=== PATIENT | female | born 1935 | race Caucasian/White ===

== ENCOUNTER 2024-01-20 18:18 | Inpatient (IN) | payer MEDICARE, SELFPAY ==
[2024-01-20] VITALS (47 sets, daily range): BP systolic 116–146; BP diastolic 68–96; PULSE 103–130; RESP 14; TEMP 39.2–39.9; O2SAT 75–96; BMI 29.0; BMI 24.2
--- NOTE | 2024-01-20 18:27 | XR_ITS ---
The [address] [address] Patient Name: KEREN MONTERROSO MRN: [id number] date: 1935 Sex: F Assigned Patient Location: ER Current Patient Location: ED.MAIN Accession/Order Number: [id number] Exam Date: 01/20/2024 18:59 Report Date: 01/20/2024 19:30 At the request of: FABIOLA REYES Procedure: XR chest 1V EXAM: XR chest 1V at 1923 hours HISTORY: Fever, shortness of breath . Cough. COMPARISON: 12/21/2022 TECHNIQUE: AP upright portable chest x-ray FINDINGS: Again seen is elevation of the right hemidiaphragm. Linear atelectasis or scarring appears somewhat improved since the prior study. The right apex in the left lung appear clear. The heart is borderline enlarged without overt cardiac decompensation. Surgical clips project over the axilla. Degenerative changes are seen in the spine. The patient is rotated to the right. XR/XR chest 1V IMPRESSION: There appears to be improvement of the opacity at the right lung base, and the linear changes persisting are probably due to a combination of atelectasis or scarring. Chronic elevation of the right hemidiaphragm is noted. There is no other evidence of an infiltrate or overt cardiac decompensation. Electronically authenticated by: ANALI YORK Date: 01/20/2024 19:30
--- NOTE | 2024-01-20 18:27 | ECG_ITS ---
The [facility] Test Date: 2024-01-20 Pat Name: KEREN MONTERROSO Department: Room: - Gender: Female Pulmonary Fellow: : 1935 Requested By: LENY JOHN Order Number: [id number] Reading MD: DILLON RADFORD Measurements Intervals [place] Rate: 119 P: 54 ME: 162 QRS: -28 QRSD: 86 T: 42 QT: 310 QTc: 380 Interpretive Statements 1120 Sinus tachycardia 7202 Moderate left axis deviation 9140 abnormal rhythm ECG Electronically Signed On 01-23-2024 8:17:44 EDT by DILLON RADFORD
--- NOTE | 2024-01-20 18:34 | ED_ITS ---
HPI HPI - General Adult General Chief complaint: Fever Stated complaint: FALL Time Seen by Provider: 01/20/24 18:20 Mode of arrival: ambulance History of Present Illness HPI narrative: 88-year-old female presented to the emergency department by paramedics to be evaluated. Apparently she was weak last night and fell but there was no obvious injury. She was discovered to have a fever and was seemingly short of breath for the paramedics. Her O2 sat was 85% on room air. She is unable to provide any significant history. No further history is obtainable. Related Data Allergies Allergy/AdvReac Type Severity Reaction Status Date / Time No Known Drug Allergies Allergy Verified 01/20/24 18:34 Opioid HPI Opioid Management Most Recent Opioid Data: No Data to Display Review of Systems ROS Narrative Unobtainable, altered mental status Exam Narrative Exam Narrative: Nurses note and vital signs reviewed and patient is not hypoxic. General: The patient appears weak. She is not in respiratory distress but appears dyspneic.. Skin: Warm, dry, no pallor noted. There is no rash noted. Head: Normocephalic, atraumatic Eye: Normal conjunctiva, no drainage Ears, Nose, Mouth, and Throat: oral mucosa is somewhat dry. Nares patent. Cardiovascular: Regular Rate and Rhythm Respiratory: Breath sounds are equal and she does not take in deep breaths GI: Soft and nontender. Implanted bilingual medical assistant present on the right abdomen. Musculoskeletal: The patient has no evidence of calf tenderness, no pitting edema, symmetrical pulses noted bilaterally Neurological: She is awake and is able to tell me her name. Psychiatric: Cooperative Constitutional Vital Signs, click to edit/add: Last Vital Signs Temp 102.8 F H 01/20/24 18:20 Pulse 120 H 01/20/24 18:20 Resp 26 H 01/20/24 18:20 BP 139/88 01/20/24 18:20 Pulse Ox 86 L 01/20/24 18:20 O2 Del Method Room Air 01/20/24 18:20 Course Vital Signs Vital signs: Vital Signs Temperature 102.8 F H 01/20/24 18:20 Pulse Rate 120 H 01/20/24 18:20 Respiratory Rate 26 H 01/20/24 18:20 Blood Pressure 139/88 01/20/24 18:20 Pulse Oximetry 86 L 01/20/24 18:20 Oxygen Delivery Method Room Air 01/20/24 18:20 Temperature 102.8 F H 01/20/24 18:20 Pulse Rate 120 H 01/20/24 18:20 Respiratory Rate 26 H 01/20/24 18:20 Blood Pressure 139/88 01/20/24 18:20 Pulse Oximetry 86 L 01/20/24 18:20 Oxygen Delivery Method Room Air 01/20/24 18:20 Medical Decision Making MDM Narrative Medical decision making narrative: Tests are ordered and the patient is signed out to Dr. Martines at change of shift. Differential Diagnosis Differential Diagnosis: UTI, COVID, influenza, pneumonia Discharge Plan Discharge Chief Complaint: Fever Clinical Impression: Fever Patient Disposition: Still a Patient Print Language: Khmer Referrals: LENY JOHN [Primary Care Provider] - 1 week
[2024-01-20 18:44] LABS: Basophils Percent Auto 0.4 % (0.2-2.0); Eosinophils Percent Auto 0.4 % (0.9-7.0); Hematocrit 41.3 % (36.0-48.0); Hemoglobin 12.8 g/dL (12.0-16.0); Immature Granulocytes Abs Auto 0.02 10^3/uL (0.00-0.03); Immature Granulocytes Pct Auto 0.2 % (0.0-0.5); Lymphocytes Absolute Auto 1.1 10^3/uL (1.2-3.8); Lymphocytes Percent Auto 11.8 % (20.5-60.0); Mean Corpuscular Hemoglobin 27.2 pg (26.7-34.0); Mean Corpuscular Volume 87.9 fL (81.0-99.0); Mean Platelet Volume 9.8 fL (9.5-13.5); Monocytes Absolute Auto 0.6 10^3/uL (0.3-0.8); Monocytes Percent Auto 5.8 % (1.7-12.0); Neutrophils Absolute Auto 7.8 10^3/uL (1.4-6.5); Neutrophils Percent Auto 81.4 % (43.0-75.0); Platelet Count 228 10^3/uL (150-450); Red Cell Distribution Width 14.9 % (11.0-15.0); White Blood Count 9.6 10^3/uL (4.0-11.0)
[2024-01-20 18:58] LABS: Bilirubin Urine NEGATIVE (NEGATIVE); Blood Urine NEGATIVE (NEGATIVE); Clarity Urine CLEAR (CLEAR); Color Urine YELLOW (YELLOW); Glucose Urine UA >=1000 mg/dL (NEGATIVE); Ketones Urine TRACE mg/dL (NEGATIVE); Leukocyte Esterase Urine NEGATIVE (NEGATIVE); Nitrite Urine NEGATIVE (NEGATIVE); Protein Urine NEGATIVE (NEG/TRACE); Urobilinogen Urine 0.2 EU/dL (0.2-1.0); pH Urine 7.5 (5.0-9.0)
[2024-01-20] MEDS: ACETAMINOPHEN 650 MG RECTAL SUPPOSITORY PR (18:58)
[2024-01-20] MEDS: 0.9 % SODIUM CHLORIDE 500 ML IV ×2 (18:58→20:49)
[2024-01-20 18:59] LABS: Adenovirus NOT DETECTED (NOT DETECTE); Bordetella parapertussis NOT DETECTED (NOT DETECTE); Coronavirus 229E NOT DETECTED (NOT DETECTE); Coronavirus HKU1 NOT DETECTED (NOT DETECTE); Coronavirus NL63 NOT DETECTED (NOT DETECTE); Coronavirus OC43 NOT DETECTED (NOT DETECTE); Human Metapneumovirus NOT DETECTED (NOT DETECTE); Influenza A NOT DETECTED (NOT DETECTE); Influenza B NOT DETECTED (NOT DETECTE); Mycoplasma pneumoniae NOT DETECTED (NOT DETECTE); Parainfluenza Virus 1 NOT DETECTED (NOT DETECTE); Parainfluenza Virus 2 NOT DETECTED (NOT DETECTE); Parainfluenza Virus 3 NOT DETECTED (NOT DETECTE); Parainfluenza Virus 4 NOT DETECTED (NOT DETECTE); Respiratory Syncytial Virus NOT DETECTED (NOT DETECTE); SARS-CoV-2 NOT DETECTED (NOT DETECTE)
[2024-01-20 19:00] LABS: INR 1.02; Partial Thromboplastin Time 24.2 sec (22.3-36.2); Prothrombin Time 10.8 sec (9.0-11.6)
[2024-01-20 19:02] LABS: Urine Microscopic Indicated NO
[2024-01-20 19:14] LABS: Alanine Aminotransferase 30 U/L (14-59); Albumin Level 3.7 g/dL (3.4-5.0); Alkaline Phosphatase 66 U/L (46-116); Anion Gap 16.4; Aspartate Amino Transferase 22 U/L (15-37); BUN Creatinine Ratio 15.6; Bilirubin Total 0.4 mg/dL (0.2-1.0); Calcium 9.3 mg/dL (8.5-10.1); Carbon Dioxide 29.5 mmol/L (21.0-32.0); Chloride 99 mmol/L (98-107); Estimated GFR (African America 48 (>=60); Estimated GFR (Non-African Ame 40 (>=60); Globulin 3.6 g/dL; Glucose 218 mg/dL (74-106); Potassium 4.9 mmol/L (3.5-5.1); Sodium 140 mmol/L (136-145); Total Protein 7.3 g/dL (6.4-8.2); Troponin I High Sensitivity 5.4 pg/mL (4.0-51.3)
[2024-01-20 19:16] LABS: PROCALCITONIN <0.05 ng/mL (0.00-0.50)
[2024-01-20 19:17] LABS: Lactate/Lactic Acid 2.3 mmol/L (0.4-2.0)
[2024-01-20] MEDS: ALBUTEROL SULFATE 2.5 MG/3 ML VIAL NEB IH (19:25)
[2024-01-20 19:50] LABS: Human Rhinovirus/Enterovirus DETECTED (NOT DETECTE)
[2024-01-20] MEDS: METHYLPREDNISOLONE SOD SUCC PF 125 MG/2 ML VIAL IVP (19:58)
[2024-01-20] MEDS: PIPERACILLIN SODIUM/TAZOBACTAM 3.375 GM in 0.9 % SODIUM CHLORIDE 50 ML IV (19:58)
[2024-01-20] MEDS: KETOROLAC TROMETHAMINE 30 MG/ML VIAL 15 MG IVP (20:48)
--- NOTE | 2024-01-20 21:55 | PC.NURSE ---
Patient transferred to ICU via cart on Non-rebreather mask with Respitory Therapist in for BIPAP setup once patient transferred for reapplication.
[2024-01-20] MEDS: 0.9 % SODIUM CHLORIDE 1,000 ML 126 ML IV (22:30)
[2024-01-20 22:43] LABS: Lactate/Lactic Acid 1.5 mmol/L (0.4-2.0)
[2024-01-21] VITALS (97 sets, daily range): BP systolic 78–135; BP diastolic 49–113; PULSE 64–153; TEMP 36.6–37.1; O2SAT 75–95; BMI 24.2
[2024-01-21] MEDS: PIPERACILLIN SODIUM/TAZOBACTAM 3.375 GM in 0.9 % SODIUM CHLORIDE 50 ML IV ×3 (02:38→21:09)
[2024-01-21 04:19] LABS: Basophils Percent Auto 0.3 % (0.2-2.0); Eosinophils Percent Auto 0.1 % (0.9-7.0); Hematocrit 37.3 % (36.0-48.0); Hemoglobin 11.5 g/dL (12.0-16.0); Immature Granulocytes Abs Auto 0.04 10^3/uL (0.00-0.03); Immature Granulocytes Pct Auto 0.5 % (0.0-0.5); Lymphocytes Percent Auto 11.1 % (20.5-60.0); Mean Corpuscular HGB Conc 30.8 g/dL (29.9-35.2); Mean Corpuscular Hemoglobin 27.5 pg (26.7-34.0); Mean Corpuscular Volume 89.2 fL (81.0-99.0); Monocytes Absolute Auto 0.6 10^3/uL (0.3-0.8); Monocytes Percent Auto 7.2 % (1.7-12.0); Neutrophils Absolute Auto 6.9 10^3/uL (1.4-6.5); Neutrophils Percent Auto 80.8 % (43.0-75.0); Platelet Count 179 10^3/uL (150-450); Red Blood Count 4.18 10^6/uL (4.20-5.40); Red Cell Distribution Width 14.8 % (11.0-15.0); White Blood Count 8.6 10^3/uL (4.0-11.0)
[2024-01-21 04:20] LABS: PCO2 VBG 43.3 mmHg (40.0-52.0); pH VBG 7.355 (7.330-7.430)
[2024-01-21 04:48] LABS: Alanine Aminotransferase 22 U/L (14-59); Albumin Globulin Ratio 0.9; Albumin Level 2.9 g/dL (3.4-5.0); Alkaline Phosphatase 48 U/L (46-116); Anion Gap 16.2; Aspartate Amino Transferase 14 U/L (15-37); BUN Creatinine Ratio 15.4; Bilirubin Total 0.4 mg/dL (0.2-1.0); Calcium 8.3 mg/dL (8.5-10.1); Carbon Dioxide 25.4 mmol/L (21.0-32.0); Chloride 105 mmol/L (98-107); Estimated GFR (African America 45 (>=60); Estimated GFR (Non-African Ame 37 (>=60); Globulin 3.2 g/dL; Glucose 244 mg/dL (74-106); Potassium 4.6 mmol/L (3.5-5.1); Sodium 142 mmol/L (136-145); Total Protein 6.1 g/dL (6.4-8.2)
[2024-01-21] MEDS: IPRATROPIUM/ALBUTEROL SULFATE 3 ML AMPUL.NEB IH ×2 (05:08→11:18)
[2024-01-21] MEDS: LEVOTHYROXINE SODIUM 100 MCG TABLET PO (05:49)
[2024-01-21] MEDS: GABAPENTIN 300 MG CAPSULE PO ×3 (05:49→21:04)
[2024-01-21] MEDS: TRAMADOL HCL 50 MG TABLET 100 MG PO ×2 (05:49→17:06)
[2024-01-21] MEDS: ACETAMINOPHEN 325 MG TABLET 650 MG PO (05:54)
[2024-01-21] MEDS: 0.9 % SODIUM CHLORIDE 1,000 ML 126 ML IV ×2 (06:42→17:08)
[2024-01-21 06:47] LABS: Thyroid Stimulating Hormone 0.423 uIU/mL (0.358-3.740)
[2024-01-21] MEDS: LEVOFLOXACIN IN DEXTROSE 5 % 750 MG/150 ML IV.SOLN 100 MG IV (06:52)
[2024-01-21] MEDS: METHYLPREDNISOLONE SOD SUCC PF 125 MG/2 ML VIAL 60 MG IVP ×3 (06:53→18:21)
[2024-01-21 07:43] LABS: Glucometer 280 mg/dL (74-106)
[2024-01-21 08:28] LABS: Magnesium 1.5 mg/dL (1.8-2.4)
[2024-01-21] MEDS: ENOXAPARIN SODIUM 30 MG/0.3 ML SYRINGE SUBQ (08:32)
[2024-01-21] MEDS: FLUTICASONE PROPIONATE 50 MCG NASAL SPRAY 2 SPRAY NS (08:32)
[2024-01-21] MEDS: INSULIN ASPART 300 UNIT/3 ML PEN SUBQ ×4 (08:33→21:00)
[2024-01-21] MEDS: METOPROLOL SUCCINATE 50 MG TAB.ER.24H PO (08:34)
[2024-01-21] MEDS: GUAIFENESIN 600 MG TAB.ER.12H PO ×2 (08:34→20:56)
[2024-01-21] MEDS: OXYBUTYNIN CHLORIDE 5 MG TAB XL 10 MG PO (08:34)
[2024-01-21] MEDS: SENNOSIDES 8.6 MG TABLET 8.59999999999999964 MG PO (08:34)
[2024-01-21] MEDS: OMEPRAZOLE 40 MG CAPSULE.DR PO (08:35)
[2024-01-21] MEDS: FENTANYL 12 MCG/HR PATCH.TD72 TD (08:39)
[2024-01-21] MEDS: ENSURE HP 237 ML LIQUID PO ×2 (08:39→21:03)
--- NOTE | 2024-01-21 08:54 | P.HP_ITS ---
HPI H&P: HPI History of Present Illness Chief complaint: FALL Sever sepsis pneumonia resp failure Narrative: Patient please to the emergency room after a fall, found to have right lower lobe pneumonia with fever, sinus tachycardia, respiratory distress, O2 saturation 86% on 3 L Initial set patient up in the intensive care unit, she had Vapotherm in place, still with some moderate conversational dyspnea. Patient had symptoms for couple days, it is progressed prior to coming into the emergency room. 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 - Disorders of diaphragm (ICD-10) Deafness in left ear ?H91.92 - Unspecified hearing loss, left ear (ICD-10) Occasional tremors ?R25.1 - Tremor, unspecified (ICD-10) CKD (chronic kidney disease), stage III ?N18.30 - Chronic kidney disease, stage 3 unspecified (ICD-10) Breast cancer ?C50.919 - Malignant neoplasm of unspecified site of unspecified female breast (ICD-10) Surgical History (Updated 01/21/24 @ 11:45 by Bernadine Harrison RN) H/O: hysterectomy ?Z90.710 - Acquired absence of both cervix and uterus (ICD-10) Previous back surgery ?Z98.890 - Other specified postprocedural states (ICD-10) H/O lumpectomy ?Z98.890 - Other specified postprocedural states (ICD-10) Social History (Updated 01/21/24 @ 08:20 by Bernadine Harrison, RN) Within the past year, how often did you have a drink containing alcohol: never Score interpretation: A score less than 3 is consistent with normal alcohol consumption. Smoking status: Never smoker Second hand tobacco smoke exposure: No Non-prescribed substance use: denies use Meds Home Medications and Allergies Home Medications ?Medication ?Instructions ?Recorded ?Confirmed ?Type albuterol sulfate 2.5 mg/3 mL 2.5 mg continuous nebulization Q4H 01/20/24 01/20/24 History (0.083 %) solution for nebulization PRN shortness of breath or wheezing albuterol sulfate 90 mcg/actuation 2 puff inhalation Q4H PRN 01/20/24 01/20/24 History aerosol inhaler shortness of breath or wheezing bupropion HCl 100 mg tablet 100 mg PO BID 01/20/24 01/20/24 History celecoxib 200 mg capsule 200 mg PO BID 01/20/24 01/20/24 History dapagliflozin propanediol 10 mg 10 mg PO QAM 01/20/24 01/20/24 History tablet (Farxiga) esomeprazole magnesium 40 mg 40 mg PO DAILY 01/20/24 01/20/24 History capsule,delayed release fentanyl 12 mcg/hr transdermal 1 patch transdermal Q72H 01/20/24 01/20/24 History patch finerenone 10 mg tablet (Kerendia) 10 mg PO DAILY 01/20/24 01/20/24 History fluticasone fur. 100 mcg-umeclid 1 inh inhalation Q24H 01/20/24 01/20/24 History 62.5 mcg-vilant 25 mcg inhalat.powder (Trelegy Ellipta) fluticasone propionate 50 2 spray intranasal QAM 01/20/24 01/20/24 History mcg/actuation nasal spray,suspension gabapentin 300 mg capsule 300 mg PO TID 01/20/24 01/20/24 History insulin glargine-yfgn 100 unit/mL 20 unit subcut BID 01/20/24 01/20/24 History (3 mL) subcutaneous pen (Semglee (insulin glargine-yfgn) Pen) levothyroxine 112 mcg tablet 100 mcg PO QAM 01/20/24 01/20/24 History lidocaine 5 % topical patch 1 patch transdermal Q24H 01/20/24 01/20/24 History metformin 500 mg tablet,extended 500 mg PO BID 01/20/24 01/20/24 History release 24 hr metoprolol succinate 50 mg 50 mg PO QAM 01/20/24 01/20/24 History tablet,extended release 24 hr mirabegron 50 mg tablet,extended 50 mg PO DAILY 01/20/24 01/20/24 History release 24 hr (Myrbetriq) naloxone 4 mg/actuation nasal spray 1 spray intranasal Q3M PRN opioid 01/20/24 01/20/24 History overdose promethazine 25 mg tablet 25 mg PO Q6H PRN nausea and 01/20/24 01/20/24 History vomiting rosuvastatin 20 mg tablet 20 mg PO QAM 01/20/24 01/20/24 History semaglutide 0.25 mg or 0.5 mg (2 0.5 mg subcut QWEEK 01/20/24 01/20/24 History mg/3 mL) subcutaneous pen injector (Ozempic) sennosides 8.6 mg tablet (senna) 8.6 mg PO DAILY 01/20/24 01/20/24 History tramadol 50 mg tablet 100 mg PO Q8H PRN pain 01/20/24 01/20/24 History Allergies Allergy/AdvReac Type Severity Reaction Status Date / Time No Known Drug Allergies Allergy Verified 01/20/24 18:34 Exam Constitutional Vital Signs, click to edit/add: Last Vital Signs Temp 102.5 F H 01/20/24 21:43 Pulse 102 H 01/21/24 07:00 Resp 16 01/21/24 07:00 BP 115/61 01/21/24 07:00 Pulse Ox 91 L 01/21/24 07:00 O2 Del Method Vapotherm 01/21/24 05:26 O2 Flow Rate 40 01/21/24 07:00 FiO2 55 01/21/24 07:00 Documenting provider has reviewed patient's vital signs: yes Common normals: apparent distress (Moderate respiratory distress) Chest Common normals: inspection of chest normal Respiratory Common normals: abnormal respiratory effort (My respiratory distress) and not clear to ascultation bilaterally Effort & inspection: tachypneic and respiratory distress Auscultation: rhonchi and wheezes Cardio Common normals: regular rate and regular rhythm GI Common normals: Normal to inspection, nondistended, normoactive bowel sounds present Extremity Common normals: normal to inspection, full ROM and no clubbing, cyanosis or edema Results Labs Labs: Short CBC 01/20/24 01/21/24 Range/Units 18:31 03:52 WBC 9.6 8.6 (4.0-11.0) 10^3/uL Hgb 12.8 11.5 L (12.0-16.0) g/dL Hct 41.3 37.3 (36.0-48.0) % Plt Count 228 179 (150-450) 10^3/uL BMP 01/20/24 01/21/24 18:31 03:52 Sodium 140 142 Potassium 4.9 4.6 Chloride 99 105 Carbon Dioxide 29.5 25.4 BUN 20.0 H 21.0 H Creatinine 1.28 H 1.36 H Glucose 218 H 244 H Calcium 9.3 8.3 L Liver Function 01/20/24 01/21/24 Range/Units 18:31 03:52 Total Bilirubin 0.4 0.4 (0.2-1.0) mg/dL AST 22 14 L (15-37) U/L ALT 30 22 (14-59) U/L Alkaline Phosphatase 66 48 (46-116) U/L Albumin 3.7 2.9 L (3.4-5.0) g/dL Urine 01/20/24 Range/Units 18:38 Urine Color Yellow (YELLOW) Urine Clarity Clear (CLEAR) Urine pH 7.5 (5.0-9.0) Ur Specific [place] 1.020 (1.005-1.025) Urine Protein Negative (NEG/TRACE) mg/dL Urine Glucose (UA) >=1000 A (NEGATIVE) mg/dL ABG ABG results: 01/21/24 03:52 VBG pH 7.355 VBG pCO2 43.3 Assessment and Plan Assessment and Plan (1) RLL pneumonia: Plan You are, 103.9, sinus tachycardia, respiratory distress, acute hypoxia with O2 saturation of 86% on 3 L, with acute hypoxic respiratory failure-on BiPAP yesterday, left shift in relation to white blood cell count consistent with bacterial process, acute kidney injury with a history of chronic kidney disease stage III, lactic acidosis secondary to right lower lobe pneumonia complicated by acute rhinovirus infection resulting in acute exacerbation of COPD and resul ting in severe sepsis. Try to obtain sputum culture, blood cultures pending, IV antibiotics, aerosols, currently on Vapotherm, see if we can wean that today, low-dose steroids secondary to poorly controlled diabetes mellitus. Did not give full fluid resuscitation secondary to her chronic kidney disease and likelihood of fluid overload Moderate protein calorie malnutrition-diet supplement Chronic kidney disease stage IV-monitor daily creatinine elevated from baseline 20% Insulin-dependent diabetes mellitus-insulin sliding scale Chronic low back pain-continue with home medications Admission criteria: Severe sepsis with borderline respiratory failure, required BiPAP last night, Vapotherm this morning, secondary to right lower lobe pneumonia. Medically necessary treatment will span 2 midnights., Urinary Catheter Management Urinary Catheter Management Urethral: Cath placed during this visit: yes Urethral indwelling: No Insertion date: 01/20/24 Insertion time: 18:49
[2024-01-21] MEDS: BUPROPION HCL 100 MG SR TABLET 12H PO ×2 (09:07→20:56)
[2024-01-21] MEDS: HYDROCORTISONE HC 2.5% RECTAL CREAM 30 APPLIC TUBE TOPICAL ×2 (09:08→21:03)
[2024-01-21] MEDS: CELECOXIB 200 MG CAPSULE PO ×2 (09:08→20:56)
--- NOTE | 2024-01-21 09:18 | CM.NOTE ---
Rounds made with Dr. Motley, pt continuees on vapotherm today. PT and OT will evaluate pt today for discharge planning. Dr. Motley did discuss skilled if needed, pt refuses at this time. Pt would like to see how she does with PT today.
[2024-01-21] MEDS: BUDESONIDE 0.5 MG/2 ML AMPULE NEB IH ×2 (11:17→22:13)
--- NOTE | 2024-01-21 11:40 | SWNOTE1 ---
SW met with pt to discuss dc needs. Pt's son was in room as well. SW discussed various discharge options. SW let pt and son know that at this time it would be beneficial to go [facility] re[facility] stay. SW let them both know it is possible she will get stronger and better and not need skilled. Then we can discuss home health or outpt. Pt lives in [place], he voiced he would like somewhere here. SW provided list from medicare.gov with star ratings. Pt's son voiced he lives right by [facility]. He would like them. SW explained to pt and son how a precert works and that if she does get better she would not have to go if she does not want to. They voiced understanding. Referral sent to [facility]. Referral included face sheet, ED note, H&P, provider notes, case management report,nursing notes, diagnostic imaging, med list, and PT/OT notes. Important Message from Medicare reviewed and discussed with patient and patient's son. They verbalized understanding and signed the form. Original given to patient's son and copy placed in patient?s chart.
[2024-01-21 12:31] LABS: Glucometer 196 mg/dL (74-106)
--- NOTE | 2024-01-21 13:14 | SWNOTE1 ---
ITA received call from Jessica at [facility], there concern is starting precert as she is still on vapotherm and they only go up to 5 liters. There other concern is they do not have a private room until Thursday and she is on droplet precautions. Jessica voiced they can start precert and see what insurance says and go from there. ITA advised her to start precert. Jessica at [facility] is starting precert.
--- NOTE | 2024-01-21 14:18 | ECG_ITS ---
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
--- NOTE | 2024-01-21 14:25 | PC.NURSE ---
Patient was noted to be tachycardic on the monitors. Upon assessment of patient, patient reveals that she is only feeling shaky at this time. Does not report any additional symptoms. EKG was performed and faxed over to physician 's office. Office staff was called and notified of EKG being sent at this time. Communicated with Dr. Motley via [place] Text. Awaiting orders from physician.
[2024-01-21] MEDS: METOPROLOL TARTRATE 5 MG/5 ML VIAL IVP ×3 (14:37→14:52)
--- NOTE | 2024-01-21 14:56 | ECG_ITS ---
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 Repeat ECG is requested 9134 abnormal ECG Compared to ECG 01/21/2024 14:14:36 ST (T wave) deviation no longer present Myocardial infarct finding still present Electronically Signed On 01-23-2024 8:20:23 EDT by DILLON RADFORD
[2024-01-21] MEDS: DILTIAZEM HCL 25 MG/5 ML VIAL 20 MG IV (15:09)
[2024-01-21] MEDS: 0.9 % SODIUM CHLORIDE 500 ML IV ×2 (15:10→16:13)
--- NOTE | 2024-01-21 15:15 | ECG_ITS ---
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
[2024-01-21] MEDS: dilTIAZem HCL 125 MG in 0.9 % SODIUM CHLORIDE 100 ML 10 MG IV (15:48)
--- NOTE | 2024-01-21 16:06 | CA_ITS ---
Patient Name: KEREN MONTERROSO MR#: [id number] : 1935 Exam Date: 01/22/2024 Ordering Doctor: DR Yuval Motley . ECHOCARDIOGRAM REPORT PROCEDURE: CA ECHO DOPPLER COMPLETE INDICATIONS: Congestive heart fialure, hypertension, diabetes, chronic kidney disease COMPARISON: None. DESCRIPTION: COMPLETE ECHOCARDIOGRAM Real-time transthoracic echocardiography with 2D, M-mode, spectral and color flow Doppler performed. QUALITY: Technical quality was good. 65 , 145#, BSA 1.73 m2, BP 124/56 LEFT VENTRICLE: Normal chamber size. Thickened septal wall. Normal systolic function. LV EF: Normal left ventricular ejection fraction, (>55%). DIASTOLIC: Normal diastolic function. ATRIAL SEPTUM: LEFT ATRIUM: Normal chamber size. RIGHT ATRIUM: Normal chamber size. RIGHT VENTRICLE: Mildly dilated. Normal right ventricular systolic function. TRICUSPID VALVE: Normal mobility and thickness. No stenosis with no regurgitation. Unable to assess right-sided pressures due to lack of measurable tricuspid regurgitation. MITRAL VALVE: Normal mobility and thickness. No evidence of mitral valve stenosis. There is no mitral annular calcification. Trivial mitral regurgitation. AORTIC VALVE: Normal trileaflet appearance. Mildly calcified aortic valve. Normal leaflet mobility. No evidence of aortic valve stenosis. Trivial aortic regurgitation. AORTIC ROOT: Normal diameter and appearance. PULMONIC VALVE: Normal thickness and mobility. No stenosis. Trivial regurgitation. PERICARDIUM: No evidence of pericardial effusion. IVC: Collapses with inspirations. IVC is normal in size. PLEURA: CONCLUSION: 1. Normal left ventricular size and systolic function. LVEF is estimated at 60 to 65%. 2. Mildly dilated right ventricle with normal systolic function. 3. No significant valvular dysfunction. 4. Unable to assess right-sided pressures due to lack of measurable tricuspid regurgitation. Adult Echocardiography Procedure Report Left Ventricle LVEDD (3.7 - 5.6 cm): 4.44 cm LVESD (2.2 - 4.0 cm): 3.29 cm LVIVS thickness (0.6 - 1.2 cm): 1.07 cm LVPW thickness (0.5 - 1.0 cm): 0.70 cm e': 0.09 m/s E - e': 8.05 LVOT Max Gradient: 4.40 mm[Hg] LVOT Area (cm2): 1.05 m/s Peak Velocity (LVOT): 1.05 m/s Mean Velocity (LVOT): 0.70 m/s LVOT Diameter 2.09 cm Left Atrium LA Volume Index (2D A2C): 26.46 ml/m2 Left Atrium Systolic Dimension: 3.87 cm Mitral Valve MV E to A Ratio: 0.92 Mitral Valve A-Wave Peak Velocity: 0.81 m/s Mitral Valve E-Wave Peak Velocity: 0.74 m/s Right Ventricle Aorta AO Root Diam: 2.97 cm Ascending Ao Diam: 2.94 cm Aortic Valve AoV Area (Peak Jeff): 2.05 cm2, 2.05 cm2 AoV Area (VTI): 2.28 cm2, 2.28 cm2 Peak Velocity(Antegrade Flow): 1.75 m/s Peak Gradient(Antegrade Flow): 12.29 mm[Hg] Mean Velocity(Antegrade Flow): 1.20 m/s Mean Gradient(Antegrade Flow): 6.65 mm[Hg] Velocity Time Integral: 36.86 cm Tricuspid Valve Pulmonic Valve Peak Velocity: 0.90 m/s Peak Gradient: 3.20 mm[Hg], 3.26 mm[Hg] Right Atrium Right Atrium Systolic Pressure: 28.91 ml, 28.91 ml Dictated by: Jozef Subramanian M.D. on 01/22/2024 at 16:23 Approved by: Jozef Subramanian M.D. on 01/22/2024 at 16:27
[2024-01-21] MEDS: IPRATROPIUM BROMIDE 0.5 MG/2.5 ML VIAL.NEB IH ×2 (16:53→22:12)
[2024-01-21] MEDS: LEVALBUTEROL HCL 0.63 MG/3 ML VIAL.NEB 0.630000000000000004 MG IH ×2 (16:53→22:13)
[2024-01-21] MEDS: BENZONATATE 100 MG CAPSULE 200 MG PO (17:06)
[2024-01-21] MEDS: ACETAMINOPHEN 500 MG TABLET 1000 MG PO (17:06)
[2024-01-21 17:11] LABS: Glucometer 233 mg/dL (74-106)
--- NOTE | 2024-01-21 18:13 | PC.NURSE ---
Urinary catheter was removed at 1000. Patient is due to void but is unable to at this time. Patient reports feeling like she is having stress incontinence when she coughs. During perineal care and application of external female catheter there was no noted urine on lift pad. It was also noted during perineal care that patient had significant redness and thick white discharge in vaginal area. Bladder scan was performed and patient was noted to have 324 ml of urine in bladder at this time. Physician was notified. Will continue to monitor patient.
[2024-01-21] MEDS: FLUCONAZOLE 100 MG TABLET PO (18:39)
[2024-01-21] MEDS: NYSTATIN 15 GM POWDER 1 APPLIC TOPICAL ×2 (18:39→21:04)
[2024-01-21 19:06] LABS: Troponin I High Sensitivity 16.9 pg/mL (4.0-51.3)
--- NOTE | 2024-01-21 19:47 | ECG_ITS ---
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
[2024-01-21 20:23] LABS: Troponin I High Sensitivity 17.5 pg/mL (4.0-51.3)
[2024-01-21 20:46] LABS: Glucometer 242 mg/dL (74-106)
[2024-01-21] MEDS: DIGOXIN 500 MCG/2 ML AMPUL 250 MCG IV (20:55)
[2024-01-21] MEDS: INSULIN DETEMIR 300 UNIT/3 ML INSULN.PEN 16 UNIT SQ (20:58)
[2024-01-22] VITALS (83 sets, daily range): BP systolic 99–167; BP diastolic 53–102; PULSE 56–131; TEMP 36.3–36.8; O2SAT 81–96
[2024-01-22] MEDS: METHYLPREDNISOLONE SOD SUCC PF 125 MG/2 ML VIAL 60 MG IVP ×2 (00:33→05:53)
[2024-01-22] MEDS: 0.9 % SODIUM CHLORIDE 1,000 ML 126 ML IV (00:33)
[2024-01-22] MEDS: TRAMADOL HCL 50 MG TABLET 100 MG PO ×3 (00:34→21:49)
[2024-01-22] MEDS: ACETAMINOPHEN 500 MG TABLET 1000 MG PO ×3 (00:39→21:51)
[2024-01-22 00:59] LABS: Troponin I High Sensitivity 21.4 pg/mL (4.0-51.3)
[2024-01-22] MEDS: DIGOXIN 500 MCG/2 ML AMPUL 250 MCG IV (02:28)
[2024-01-22 04:59] LABS: Basophils Percent Auto 0.1 % (0.2-2.0); Hematocrit 32.4 % (36.0-48.0); Hemoglobin 10.1 g/dL (12.0-16.0); Immature Granulocytes Abs Auto 0.05 10^3/uL (0.00-0.03); Immature Granulocytes Pct Auto 0.6 % (0.0-0.5); Lymphocytes Absolute Auto 0.8 10^3/uL (1.2-3.8); Mean Corpuscular HGB Conc 31.2 g/dL (29.9-35.2); Mean Corpuscular Hemoglobin 27.6 pg (26.7-34.0); Mean Corpuscular Volume 88.5 fL (81.0-99.0); Mean Platelet Volume 10.4 fL (9.5-13.5); Monocytes Absolute Auto 0.6 10^3/uL (0.3-0.8); Monocytes Percent Auto 7.3 % (1.7-12.0); Neutrophils Absolute Auto 7.2 10^3/uL (1.4-6.5); Platelet Count 173 10^3/uL (150-450); Red Blood Count 3.66 10^6/uL (4.20-5.40); Red Cell Distribution Width 14.8 % (11.0-15.0); White Blood Count 8.7 10^3/uL (4.0-11.0)
[2024-01-22 05:17] LABS: Alanine Aminotransferase 22 U/L (14-59); Albumin Globulin Ratio 0.7; Albumin Level 2.4 g/dL (3.4-5.0); Alkaline Phosphatase 42 U/L (46-116); Anion Gap 13.2; Aspartate Amino Transferase 23 U/L (15-37); BUN Creatinine Ratio 24.6; Bilirubin Total 0.4 mg/dL (0.2-1.0); Calcium 8.3 mg/dL (8.5-10.1); Carbon Dioxide 25.9 mmol/L (21.0-32.0); Chloride 109 mmol/L (98-107); Estimated GFR (African America 51 (>=60); Estimated GFR (Non-African Ame 42 (>=60); Globulin 3.3 g/dL; Glucose 153 mg/dL (74-106); Potassium 4.1 mmol/L (3.5-5.1); Sodium 144 mmol/L (136-145); Total Protein 5.7 g/dL (6.4-8.2)
[2024-01-22 05:21] LABS: Troponin I High Sensitivity 20.6 pg/mL (4.0-51.3)
[2024-01-22] MEDS: IPRATROPIUM BROMIDE 0.5 MG/2.5 ML VIAL.NEB IH ×4 (05:27→22:34)
[2024-01-22] MEDS: LEVALBUTEROL HCL 0.63 MG/3 ML VIAL.NEB 0.630000000000000004 MG IH ×4 (05:27→22:34)
[2024-01-22] MEDS: PIPERACILLIN SODIUM/TAZOBACTAM 3.375 GM in 0.9 % SODIUM CHLORIDE 50 ML IV ×3 (05:52→21:56)
[2024-01-22] MEDS: GABAPENTIN 300 MG CAPSULE PO ×3 (05:53→21:50)
[2024-01-22] MEDS: LEVOTHYROXINE SODIUM 100 MCG TABLET PO (05:54)
[2024-01-22] MEDS: NYSTATIN 15 GM POWDER 1 APPLIC TOPICAL ×3 (05:56→21:52)
[2024-01-22 06:34] LABS: Digoxin 2.3 ng/mL (0.9-2.0)
[2024-01-22 07:47] LABS: Glucometer 157 mg/dL (74-106)
[2024-01-22] MEDS: INSULIN ASPART 300 UNIT/3 ML PEN SUBQ ×4 (08:30→21:53)
[2024-01-22] MEDS: GUAIFENESIN 600 MG TAB.ER.12H PO ×2 (08:31→21:50)
[2024-01-22] MEDS: BUPROPION HCL 100 MG SR TABLET 12H PO ×2 (08:31→21:50)
[2024-01-22] MEDS: FLUTICASONE PROPIONATE 50 MCG NASAL SPRAY 2 SPRAY NS (08:31)
[2024-01-22] MEDS: SENNOSIDES 8.6 MG TABLET 8.59999999999999964 MG PO (08:31)
[2024-01-22] MEDS: OXYBUTYNIN CHLORIDE 5 MG TAB XL 10 MG PO (08:31)
[2024-01-22] MEDS: OMEPRAZOLE 40 MG CAPSULE.DR PO (08:31)
[2024-01-22] MEDS: FLUCONAZOLE 100 MG TABLET PO (08:31)
[2024-01-22] MEDS: CELECOXIB 200 MG CAPSULE PO ×2 (08:31→21:50)
[2024-01-22] MEDS: ENSURE HP 237 ML LIQUID PO ×2 (08:31→21:55)
[2024-01-22] MEDS: ENOXAPARIN SODIUM 30 MG/0.3 ML SYRINGE SUBQ (08:32)
[2024-01-22] MEDS: HYDROCORTISONE HC 2.5% RECTAL CREAM 30 APPLIC TUBE TOPICAL ×2 (08:33→21:54)
--- NOTE | 2024-01-22 08:34 | P.PN_ITS ---
Progress Note: Subjective Subjective Interval history: This am on rounds - pt felt better -= able to be weaned off vapotherm this afternoon -pt with tachycardia and placed back on vapotherm - and cardizem drip Exam Constitutional Vital Signs, click to edit/add: Last Vital Signs Temp 98.1 F 01/22/24 04:00 Pulse 66 01/22/24 08:00 Resp 20 01/22/24 08:00 BP 146/74 H 01/22/24 04:30 Pulse Ox 91 L 01/22/24 08:00 O2 Del Method Nasal Cannula 01/22/24 06:00 O2 Flow Rate 5 01/22/24 06:00 FiO2 50 01/22/24 05:27 Documenting provider has reviewed patient's vital signs: yes Common normals: apparent distress (Moderate respiratory distress) Chest Common normals: inspection of chest normal Respiratory Common normals: abnormal respiratory effort (My respiratory distress) and not clear to ascultation bilaterally Effort & inspection: tachypneic and respiratory distress Auscultation: rhonchi and wheezes Cardio Common normals: regular rate and regular rhythm GI Common normals: Normal to inspection, nondistended, normoactive bowel sounds present Extremity Common normals: normal to inspection, full ROM and no clubbing, cyanosis or edema Progress Note: Objective Labs Labs: Short CBC 01/22/24 Range/Units 04:28 WBC 8.7 (4.0-11.0) 10^3/uL Hgb 10.1 L (12.0-16.0) g/dL Hct 32.4 L (36.0-48.0) % Plt Count 173 (150-450) 10^3/uL BMP 01/22/24 04:28 Sodium 144 Potassium 4.1 Chloride 109 H Carbon Dioxide 25.9 BUN 30.0 H Creatinine 1.22 H Glucose 153 H Calcium 8.3 L Liver Function 01/22/24 Range/Units 04:28 Total Bilirubin 0.4 (0.2-1.0) mg/dL AST 23 (15-37) U/L ALT 22 (14-59) U/L Alkaline Phosphatase 42 L (46-116) U/L Albumin 2.4 L (3.4-5.0) g/dL Progress Note: A&P Assessment and Plan (1) RLL pneumonia: Assessment and Plan: Admission Dx: Fever, 103.9, sinus tachycardia, respiratory distress, acute hypoxia with O2 saturation of 86% on 3 L, with acute hypoxic respiratory failure-on BiPAP yesterday, left shift in relation to white blood cell count consistent with bacterial process, acute kidney injury with a history of chronic kidney disease stage III, lactic acidosis secondary to right lower lobe pneumonia complicated by acute rhinovirus infection resulting in acute exacerbation of COPD and resulting in severe sepsis. Try to obtain sputum culture, blood cultures pending, IV antibiotics, aerosols, start to taper steroids Currently had to restart the Vapotherm, consult pulmonology and cardiology pending for today. Continue with current antibiotic regiment white blood cell count remains normal Borderline dig toxicity-heart rate is much improved this morning, she did go back into the rapid rate this afternoon, will start patient on oral Cardizem, she does have a dose of oral Lanoxin in a.m. just need to verify level in a.m. 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 Medically necessary treatment will span 2 midnights., Urinary Catheter Management Urinary Catheter Management Urethral: Cath placed during this visit: yes Urethral indwelling: No Insertion date: 01/20/24 Insertion time: 18:49
--- NOTE | 2024-01-22 08:40 | CM.NOTE ---
Rounds made with Dr. Motley. No plan for discharge today.
[2024-01-22] MEDS: METOPROLOL SUCCINATE 50 MG TAB.ER.24H 75 MG PO (09:10)
[2024-01-22] MEDS: DILTIAZEM HCL 25 MG/5 ML VIAL 20 MG IV (10:03)
[2024-01-22] MEDS: dilTIAZem HCL 125 MG in 0.9 % SODIUM CHLORIDE 100 ML 10 MG IV (10:03)
--- NOTE | 2024-01-22 10:27 | ECG_ITS ---
[facility] Test Date: 2024-01-22 Pat Name: KEREN MONTERROSO Department: Room: 2711 Gender: Female Nurse Advisor: : [id number] Requested By: LENY JOHN Order Number: [id number] Reading MD: DILLON RADFORD Measurements Intervals Merrick Rate: 80 P: 62 NH: 188 QRS: 28 QRSD: 82 T: 27 QT: 386 QTc: 421 Interpretive Statements 1100 Sinus rhythm 8102 Low QRS voltage in chest leads 9120 atypical ECG Compared to ECG 01/21/2024 19:29:09 Sinus arrhythmia no longer present T-wave abnormality no longer present Electronically Signed On 01-23-2024 8:25:40 EDT by DILLON RADFORD
[2024-01-22] MEDS: BUDESONIDE 0.5 MG/2 ML AMPULE NEB IH ×2 (11:36→22:34)
--- NOTE | 2024-01-22 11:59 | P.PLCN_ITS ---
History of Present Illness History of Present Illness Chief complaint: FALL Sever sepsis pneumonia resp failure Narrative: 88yo female seen with pneumonia and respiratory failure. She is positive for rhinovirus and has a RLL infiltrate. 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 SpO2 was 85% on RA on admission, but she continued to decline and is currently requiring FiO2 60% on Vapotherm. She states she is breathing better at this time. Currently having an echocardiogram. 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 She was exposed to beryllium, but no known history of berylliosis. Also has PAP at home, but cannot tell me if it is for AFUA or her hemidiaphragmatic paralysis. Review of Systems ROS Status of ROS 10 or more systems reviewed and unremark able except as noted in history and below (Dyspnea, cough, wheeze) [facility] Medical History (Updated 01/21/24 @ 15:00 by Bernadine Harrison, GETACHEW) Constipation ?K59.00 - Constipation, unspecified (ICD-10) Hypercholesteremia ?E78.00 - Pure hypercholesterolemia, unspecified (ICD-10) Hypertension ?I10 - Essential (primary) hypertension (ICD-10) Hypothyroid ?E03.9 - Hypothyroidism, unspecified (ICD-10) GERD (gastroesophageal reflux disease) ?K21.9 - Gastro-esophageal reflux disease without esophagitis (ICD-10) Arthritis ?M19.90 - Unspecified osteoarthritis, unspecified site (ICD-10) Paralysis of diaphragm ?J98.6 - Disorders of diaphragm (ICD-10) Deafness in left ear ?H91.92 - Unspecified hearing loss, left ear (ICD-10) Occasional tremors ?R25.1 - Tremor, unspecified (ICD-10) CKD (chronic kidney disease), stage III ?N18.30 - Chronic kidney disease, stage 3 unspecified (ICD-10) Breast cancer ?C50.919 - Malignant neoplasm of unspecified site of unspecified female breast (ICD-10) Surgical History (Updated 01/21/24 @ 11:45 by Bernadine Harrison, GETACHEW) H/O: hysterectomy ?Z90.710 - Acquired absence of both cervix and uterus (ICD-10) Previous back surgery ?Z98.890 - Other specified postprocedural states (ICD-10) H/O lumpectomy ?Z98.890 - Other specified postprocedural states (ICD-10) Social History (Updated 01/21/24 @ 08:20 by Bernadine Harrison RN) Within the past year, how often did you have a drink containing alcohol: never Score interpretation: A score less than 3 is consistent with normal alcohol consumption. Smoking status: Never smoker Second hand tobacco smoke exposure: No Non-prescribed substance use: denies use Meds Home Medications and Allergies Home Medications ?Medication ?Instructions ?Recorded ?Confirmed ?Type albuterol sulfate 2.5 mg/3 mL 2.5 mg continuous nebulization Q4H 01/20/24 01/20/24 History (0.083 %) solution for nebulization PRN shortness of breath or wheezing albuterol sulfate 90 mcg/actuation 2 puff inhalation Q4H PRN 01/20/24 01/20/24 History aerosol inhaler shortness of breath or wheezing bupropion HCl 100 mg tablet 100 mg PO BID 01/20/24 01/20/24 History celecoxib 200 mg capsule 200 mg PO BID 01/20/24 01/20/24 History dapagliflozin propanediol 10 mg 10 mg PO QAM 01/20/24 01/20/24 History tablet (Farxiga) esomeprazole magnesium 40 mg 40 mg PO DAILY 01/20/24 01/20/24 History capsule,delayed release fentanyl 12 mcg/hr transdermal 1 patch transdermal Q72H 01/20/24 01/20/24 History patch finerenone 10 mg tablet (Kerendia) 10 mg PO DAILY 01/20/24 01/20/24 History fluticasone fur. 100 mcg-umeclid 1 inh inhalation Q24H 01/20/24 01/20/24 History 62.5 mcg-vilant 25 mcg inhalat.powder (Trelegy Ellipta) fluticasone propionate 50 2 spray intranasal QAM 01/20/24 01/20/24 History mcg/actuation nasal spray,suspension gabapentin 300 mg capsule 300 mg PO TID 01/20/24 01/20/24 History insulin glargine-yfgn 100 unit/mL 20 unit subcut BID 01/20/24 01/20/24 History (3 mL) subcutaneous pen (Semglee (insulin glargine-yfgn) Pen) levothyroxine 112 mcg tablet 100 mcg PO QAM 01/20/24 01/20/24 History lidocaine 5 % topical patch 1 patch transdermal Q24H 01/20/24 01/20/24 History metformin 500 mg tablet,extended 500 mg PO BID 01/20/24 01/20/24 History release 24 hr metoprolol succinate 50 mg 50 mg PO QAM 01/20/24 01/20/24 History tablet,extended release 24 hr mirabegron 50 mg tablet,extended 50 mg PO DAILY 01/20/24 01/20/24 History release 24 hr (Myrbetriq) naloxone 4 mg/actuation nasal spray 1 spray intranasal Q3M PRN opioid 01/20/24 01/20/24 History overdose promethazine 25 mg tablet 25 mg PO Q6H PRN nausea and 01/20/24 01/20/24 History vomiting rosuvastatin 20 mg tablet 20 mg PO QAM 01/20/24 01/20/24 History semaglutide 0.25 mg or 0.5 mg (2 0.5 mg subcut QWEEK 01/20/24 01/20/24 History mg/3 mL) subcutaneous pen injector (Ozempic) sennosides 8.6 mg tablet (senna) 8.6 mg PO DAILY 01/20/24 01/20/24 History tramadol 50 mg tablet 100 mg PO Q8H PRN pain 01/20/24 01/20/24 History Allergies Allergy/AdvReac Type Severity Reaction Status Date / Time No Known Drug Allergies Allergy Verified 01/20/24 18:34 Exam Constitutional Vital Signs, click to edit/add: Last Vital Signs Temp 97.8 F 01/22/24 11:10 Pulse 85 01/22/24 11:38 Resp 20 01/22/24 10:00 BP 126/75 01/22/24 11:00 Pulse Ox 92 L 01/22/24 11:38 O2 Del Method Vapotherm 01/22/24 11:38 O2 Flow Rate 40 01/22/24 11:38 FiO2 60 01/22/24 11:38 Common normals: no apparent distress HENMT Other: Wearing Vapotherm cannula. Chest Chest: symmetrical chest wall rise Respiratory Other: Diminished breath sounds throughout, near-absent RLL. Crackles mid-right chest region. No wheezes. Cardio Other: RRR GI Inspection: normal to inspection Extremity Common normals: no clubbing, cyanosis or edema Neuro Other: Hard of hearing Psych Speech: normal speech Results Laboratory Findings ABG, PT/INR, D-dimer: PT/INR, D-dimer PT 10.8 sec (9.0-11.6) 01/20/24 18:31 INR 1.02 01/20/24 18:31 Abnormal lab findings: Abnormal Labs 01/20/24 01/20/24 01/20/24 18:27 18:31 18:38 RBC Hgb Hct Neut % (Auto) 81.4 H Lymph % (Auto) 11.8 L Eos % (Auto) 0.4 L Baso % (Auto) Neut # (Auto) 7.8 H Lymph # (Auto) 1.1 L Abs Immat Gran (auto) Imm/Tot Granulo (auto) Chloride BUN 20.0 H Creatinine 1.28 H Est GFR ( Amer) 48 L Est GFR (Non-Af Amer) 40 L Glucose 218 H Lactate 2.3 H* Calcium Magnesium AST Alkaline Phosphatase NT-Pro-B Natriuret Pep Total Protein Albumin Urine Glucose (UA) >=1000 A Urine Ketones Trace A Digoxin Entero/Rhino (PCR) Detected A POC Glucose 01/21/24 01/21/24 01/21/24 03:52 07:41 12:30 RBC 4.18 L Hgb 11.5 L Hct Neut % (Auto) 80.8 H Lymph % (Auto) 11.1 L Eos % (Auto) 0.1 L Baso % (Auto) Neut # (Auto) 6.9 H Lymph # (Auto) 1.0 L Abs Immat Gran (auto) 0.04 H Imm/Tot Granulo (auto) Chloride BUN 21.0 H Creatinine 1.36 H Est GFR ( Amer) 45 L Est GFR (Non-Af Amer) 37 L Glucose 244 H Lactate Calcium 8.3 L Magnesium 1.5 L AST 14 L Alkaline Phosphatase NT-Pro-B Natriuret Pep Total Protein 6.1 L Albumin 2.9 L Urine Glucose (UA) Urine Ketones Digoxin Entero/Rhino (PCR) POC Glucose 280 H 196 H 01/21/24 01/21/24 01/22/24 17:09 20:41 04:28 RBC 3.66 L Hgb 10.1 L Hct 32.4 L Neut % (Auto) 83.0 H Lymph % (Auto) 9.0 L Eos % (Auto) 0.0 L Baso % (Auto) 0.1 L Neut # (Auto) 7.2 H Lymph # (Auto) 0.8 L Abs Immat Gran (auto) 0.05 H Imm/Tot Granulo (auto) 0.6 H Chloride 109 H BUN 30.0 H Creatinine 1.22 H Est GFR ( Amer) 51 L Est GFR (Non-Af Amer) 42 L Glucose 153 H Lactate Calcium 8.3 L Magnesium AST Alkaline Phosphatase 42 L NT-Pro-B Natriuret Pep 3810.0 H* Total Protein 5.7 L Albumin 2.4 L Urine Glucose (UA) Urine Ketones Digoxin 2.3 H* Entero/Rhino (PCR) POC Glucose 233 H 242 H 01/22/24 07:47 RBC Hgb Hct Neut % (Auto) Lymph % (Auto) Eos % (Auto) Baso % (Auto) Neut # (Auto) Lymph # (Auto) Abs Immat Gran (auto) Imm/Tot Granulo (auto) Chloride BUN Creatinine Est GFR ( Amer) Est GFR (Non-Af Amer) Glucose Lactate Calcium Magnesium AST Alkaline Phosphatase NT-Pro-B Natriuret Pep Total Protein Albumin Urine Glucose (UA) Urine Ketones Digoxin Entero/Rhino (PCR) POC Glucose 157 H Assessment and Plan Assessment and Plan (1) RLL pneumonia: Assessment and Plan: 1. Acute viral pneumonia in RLL secondary to rhinovirus. Cannot R/O secondary RLL bacterial pneumonia. Treatment for viral component is supportive care. 2. Congenital right hemidiaphragm paralysis. Treatment is mainly supportive for unilateral paralysis. Continue with PEP. Add saline nebs if difficulty expectorating. Use own PAP once Vapotherm not required. 3. Acute hypoxic respiratory failure. Secondary to #1, compounded by #2. Continue with Vapotherm. Treatment is supportive. 4. COPD, secondary to occupational exposure. On Trelegy at home. Continue nebulized bronchodilators, budesonide.
[2024-01-22 12:03] LABS: Glucometer 261 mg/dL (74-106)
[2024-01-22] MEDS: METHYLPREDNISOLONE SOD SUCC PF 40 MG/ML VIAL IVP ×2 (12:06→18:35)
--- NOTE | 2024-01-22 15:12 | SWNOTE1 ---
Pt is still on vapotherm, SW did send updates over. Jessica and Alaina at [facility] are gone for the day. SW to touch base on Thursday.
[2024-01-22] MEDS: DILTIAZEM HCL 60 MG TABLET PO ×2 (15:39→21:49)
[2024-01-22 17:15] LABS: Glucometer 172 mg/dL (74-106)
[2024-01-22] MEDS: ASPIRIN 81 MG TABLET.DR 162 MG PO (18:35)
[2024-01-22 21:29] LABS: Glucometer 238 mg/dL (74-106)
[2024-01-22] MEDS: TEMAZEPAM 15 MG CAPSULE PO (21:49)
[2024-01-22] MEDS: LIDOCAINE 5% PATCH 1 PATCH TOPICAL (21:51)
[2024-01-22] MEDS: INSULIN DETEMIR 300 UNIT/3 ML INSULN.PEN 16 UNIT SQ (21:53)
--- NOTE | 2024-01-22 22:48 | PC.NURSE ---
RT to increase fio2 d/t desating 87-89%
--- NOTE | 2024-01-22 23:10 | PM.CACN ---
History of Present Illness History of Present Illness Consult date: 01/22/24 Requesting physician: Yuval Motley Chief complaint: FALL Sever sepsis pneumonia resp failure Narrative: This is an 88 yo woman who is admitted with pneumonia, fever, sepsis and hypoxia. she was noted to have episodes of tachycardia around 130-150 bmp by monitor. The episodes resolve spontaneously. She does not have associated symptoms. She was started on cardizem. her blood pressure has been stable. She denies chest pain. her breathing is improved and her saturation is much better. Her echocardiogram today showed mildly dilated right ventricle but otherwise no significant abnormalities. Review of her ECGs during the tachycardia shows atrial flutter with rapid ventricular resonse. Review of Systems ROS Status of ROS 10 or more systems reviewed and unremarkable except as noted in history and below (Dyspnea, cough, wheeze) [facility] Medical History (Updated 01/22/24 @ 23:21 by ELIANA MADSEN) Constipation ?K59.00 - Constipation, unspecified (ICD-10) Hypercholesteremia ?E78.00 - Pure hypercholesterolemia, unspecified (ICD-10) Hypertension ?I10 - Essential (primary) hypertension (ICD-10) Hypothyroid ?E03.9 - Hypothyroidism, unspecified (ICD-10) GERD (gastroesophageal reflux disease) ?K21.9 - Gastro-esophageal reflux disease without esophagitis (ICD-10) Arthritis ?M19.90 - Unspecified osteoarthritis, unspecified site (ICD-10) Paralysis of diaphragm ?J98.6 - Disorders of diaphragm (ICD-10) Deafness in left ear ?H91.92 - Unspecified hearing loss, left ear (ICD-10) Occasional tremors ?R25.1 - Tremor, unspecified (ICD-10) CKD (chronic kidney disease), stage III ?N18.30 - Chronic kidney disease, stage 3 unspecified (ICD-10) Breast cancer ?C50.919 - Malignant neoplasm of unspecified site of unspecified female breast (ICD-10) Surgical History (Updated 01/21/24 @ 11:45 by Bernadine Harrison RN) H/O: hysterectomy ?Z90.710 - Acquired absence of both cervix and uterus (ICD-10) Previous back surgery ?Z98.890 - Other specified postprocedural states (ICD-10) H/O lumpectomy ?Z98.890 - Other specified postprocedural states (ICD-10) Social History (Updated 01/21/24 @ 08:20 by Bernadine Harrison RN) Within the past year, how often did you have a drink containing alcohol: never Score interpretation: A score less than 3 is consistent with normal alcohol consumption. Smoking status: Never smoker Second hand tobacco smoke exposure: No Non-prescribed substance use: denies use Meds Home Medications and Allergies Home Medications ?Medication ?Instructions ?Recorded ?Confirmed ?Type albuterol sulfate 2.5 mg/3 mL 2.5 mg continuous nebulization Q4H 01/20/24 01/20/24 History (0.083 %) solution for nebulization PRN shortness of breath or wheezing albuterol sulfate 90 mcg/actuation 2 puff inhalation Q4H PRN 01/20/24 01/20/24 History aerosol inhaler shortness of breath or wheezing bupropion HCl 100 mg tablet 100 mg PO BID 01/20/24 01/20/24 History celecoxib 200 mg capsule 200 mg PO BID 01/20/24 01/20/24 History dapagliflozin propanediol 10 mg 10 mg PO QAM 01/20/24 01/20/24 History tablet (Farxiga) esomeprazole magnesium 40 mg 40 mg PO DAILY 01/20/24 01/20/24 History capsule,delayed release fentanyl 12 mcg/hr transdermal 1 patch transdermal Q72H 01/20/24 01/20/24 History patch finerenone 10 mg tablet (Kerendia) 10 mg PO DAILY 01/20/24 01/20/24 History fluticasone fur. 100 mcg-umeclid 1 inh inhalation Q24H 01/20/24 01/20/24 History 62.5 mcg-vilant 25 mcg inhalat.powder (Trelegy Ellipta) fluticasone propionate 50 2 spray intranasal QAM 01/20/24 01/20/24 History mcg/actuation nasal spray,suspension gabapentin 300 mg capsule 300 mg PO TID 01/20/24 01/20/24 History insulin glargine-yfgn 100 unit/mL 20 unit subcut BID 01/20/24 01/20/24 History (3 mL) subcutaneous pen (Semglee (insulin glargine-yfgn) Pen) levothyroxine 112 mcg tablet 100 mcg PO QAM 01/20/24 01/20/24 History lidocaine 5 % topical patch 1 patch transdermal Q24H 01/20/24 01/20/24 History metformin 500 mg tablet,extended 500 mg PO BID 01/20/24 01/20/24 History release 24 hr metoprolol succinate 50 mg 50 mg PO QAM 01/20/24 01/20/24 History tablet,extended release 24 hr mirabegron 50 mg tablet,extended 50 mg PO DAILY 01/20/24 01/20/24 History release 24 hr (Myrbetriq) naloxone 4 mg/actuation nasal spray 1 spray intranasal Q3M PRN opioid 01/20/24 01/20/24 History overdose promethazine 25 mg tablet 25 mg PO Q6H PRN nausea and 01/20/24 01/20/24 History vomiting rosuvastatin 20 mg tablet 20 mg PO QAM 01/20/24 01/20/24 History semaglutide 0.25 mg or 0.5 mg (2 0.5 mg subcut QWEEK 01/20/24 01/20/24 History mg/3 mL) subcutaneous pen injector (Ozempic) sennosides 8.6 mg tablet (senna) 8.6 mg PO DAILY 01/20/24 01/20/24 History tramadol 50 mg tablet 100 mg PO Q8H PRN pain 01/20/24 01/20/24 History Allergies Allergy/AdvReac Type Severity Reaction Status Date / Time No Known Drug Allergies Allergy Verified 01/20/24 18:34 Exam Constitutional Vital Signs, click to edit/add: Last Vital Signs Temp 98 F 01/22/24 19:34 Pulse 76 01/22/24 22:00 Resp 20 01/22/24 19:50 BP 155/89 H 01/22/24 21:49 Pulse Ox 89 L 01/22/24 22:00 O2 Del Method Vapotherm 01/22/24 17:01 O2 Flow Rate 40 01/22/24 19:34 FiO2 45 01/22/24 19:34 Common normals: no apparent distress Chest Common normals: inspection of chest normal Respiratory Common normals: normal respiratory effort Auscultation: rhonchi Cardio Common normals: no JVD, regular rate and no murmurs Rate: regular rate Rhythm: regular rhythm Heart sounds: S1 normal and S2 normal Peripheral pulses: radial pulses present Extremity Common normals: normal to inspection and no pedal edema Results Labs and Meds Lab results: Cardiac Enzymes 01/22/24 Range/Units 04:28 AST 23 (15-37) U/L CBC 01/22/24 Range/Units 04:28 WBC 8.7 (4.0-11.0) 10^3/uL RBC 3.66 L (4.20-5.40) 10^6/uL Hgb 10.1 L (12.0-16.0) g/dL Hct 32.4 L (36.0-48.0) % Plt Count 173 (150-450) 10^3/uL Neut # (Auto) 7.2 H (1.4-6.5) 10^3/uL Lymph # (Auto) 0.8 L (1.2-3.8) 10^3/uL Whitley # (Auto) 0.6 (0.3-0.8) 10^3/uL Eos # (Auto) 0.0 (0.0-0.7) 10^3/uL Baso # (Auto) 0.0 (0.0-0.1) 10^3/uL Comprehensive Metabolic Panel 01/22/24 Range/Units 04:28 Sodium 144 (136-145) mmol/L Potassium 4.1 (3.5-5.1) mmol/L Chloride 109 H (98-107) mmol/L Carbon Dioxide 25.9 (21.0-32.0) mmol/L BUN 30.0 H (7.0-18.0) mg/dL Creatinine 1.22 H (0.55-1.02) mg/dL Glucose 153 H (74-106) mg/dL Calcium 8.3 L (8.5-10.1) mg/dL AST 23 (15-37) U/L ALT 22 (14-59) U/L Alkaline Phosphatase 42 L (46-116) U/L Total Protein 5.7 L (6.4-8.2) g/dL Albumin 2.4 L (3.4-5.0) g/dL Intake and Output 01/22/24 01/22/24 01/22/24 07:59 15:59 23:59 Intake Total 1968.287 / 4639.370 724.5 / 1002.75 278.25 / 1002.75 Output Total 700 / 900 1050 / 1050 Balance 1268.287 / 3739.370 -325.5 / -47.25 278.25 / -47.25 Intake: Oral 100 / 517 670 / 870 200 / 870 IV 1868.287 / 4122.370 54.5 / 132.75 78.25 / 132.75 0.9 % Sodium Chloride 1,000 ml 1747.37 / 2747.37 @ 126 mls/hr IV .Q7H57M [facility] Rx# :[id number] Piperacillin Sodium/Tazobactam 50 / 100 50 / 100 50 / 100 3.375 gm In 0.9 % Sodium Chloride 50 ml @ 12.5 mls/hr IV Q8H [facility] Rx#:[id number] dilTIAZem HCL 125 mg In 0.9 % 70.917 / 125.000 4.5 / 32.75 28.25 / 32.75 Sodium Chloride 100 ml @ 10 MG/ HR 10 mls/hr IV [facility] Rx#: [id number] Output: Urine 1050 / 1050 Other 700 / 700 Other: # Unmeasured Voids 1 Weight 71.4 kg EKG Interpretation ECG shows: tachycardia (with atrial flutter) Assessment and Plan Assessment and Plan (1) Atrial flutter, paroxysmal: (2) RLL pneumonia: Plan she has atrial flutter episodes in the setting of sepsis, fever, and pneumonia.I reviewed her ECGs during the tachycardia episodes and I confirm that they are consistent with AFL. I think this related to the illness and hypoxia. I recommend continued cardizem. add aspirin 81 mg daily. continue management of penumonia. We can see her in follow up with plan to check an event monitor to rule out recurrence of AF.
--- NOTE | 2024-01-22 23:37 | RESP.RT ---
Increased to 55% FiO2
--- NOTE | 2024-01-22 23:38 | RESP.RT ---
Increased to 55% FiO2
[2024-01-23] VITALS (61 sets, daily range): BP systolic 119–165; BP diastolic 64–85; PULSE 50–89; TEMP 36.6; O2SAT 71–96
[2024-01-23] MEDS: METHYLPREDNISOLONE SOD SUCC PF 40 MG/ML VIAL IVP ×4 (01:04→17:34)
[2024-01-23] MEDS: LEVALBUTEROL HCL 0.63 MG/3 ML VIAL.NEB 0.630000000000000004 MG IH ×4 (04:34→22:55)
[2024-01-23] MEDS: IPRATROPIUM BROMIDE 0.5 MG/2.5 ML VIAL.NEB IH ×4 (04:34→22:55)
[2024-01-23 05:23] LABS: Basophils Percent Auto 0.1 % (0.2-2.0); Hematocrit 32.3 % (36.0-48.0); Immature Granulocytes Abs Auto 0.13 10^3/uL (0.00-0.03); Immature Granulocytes Pct Auto 1.7 % (0.0-0.5); Lymphocytes Absolute Auto 0.7 10^3/uL (1.2-3.8); Lymphocytes Percent Auto 9.8 % (20.5-60.0); Mean Corpuscular Volume 87.3 fL (81.0-99.0); Mean Platelet Volume 10.3 fL (9.5-13.5); Monocytes Absolute Auto 0.5 10^3/uL (0.3-0.8); Monocytes Percent Auto 6.2 % (1.7-12.0); Neutrophils Absolute Auto 6.2 10^3/uL (1.4-6.5); Neutrophils Percent Auto 82.2 % (43.0-75.0); Platelet Count 191 10^3/uL (150-450); Red Cell Distribution Width 14.6 % (11.0-15.0); White Blood Count 7.5 10^3/uL (4.0-11.0)
[2024-01-23] MEDS: DILTIAZEM HCL 60 MG TABLET PO ×4 (05:24→22:14)
[2024-01-23] MEDS: LEVOTHYROXINE SODIUM 100 MCG TABLET PO (05:24)
[2024-01-23] MEDS: GABAPENTIN 300 MG CAPSULE PO ×3 (05:25→22:14)
[2024-01-23] MEDS: BENZONATATE 100 MG CAPSULE 200 MG PO (05:25)
[2024-01-23] MEDS: TRAMADOL HCL 50 MG TABLET 100 MG PO ×3 (05:25→22:10)
[2024-01-23] MEDS: PIPERACILLIN SODIUM/TAZOBACTAM 3.375 GM in 0.9 % SODIUM CHLORIDE 50 ML IV ×3 (05:26→23:27)
[2024-01-23] MEDS: LEVOFLOXACIN IN DEXTROSE 5 % 750 MG/150 ML IV.SOLN 100 MG IV (05:27)
[2024-01-23] MEDS: NYSTATIN 15 GM POWDER 1 APPLIC TOPICAL ×3 (05:28→22:14)
[2024-01-23 05:44] LABS: Digoxin 0.7 ng/mL (0.9-2.0)
[2024-01-23 05:58] LABS: Alanine Aminotransferase 33 U/L (14-59); Albumin Globulin Ratio 0.8; Albumin Level 2.5 g/dL (3.4-5.0); Alkaline Phosphatase 45 U/L (46-116); Anion Gap 13.8; Aspartate Amino Transferase 34 U/L (15-37); BUN Creatinine Ratio 31.4; Bilirubin Total 0.4 mg/dL (0.2-1.0); Calcium 8.6 mg/dL (8.5-10.1); Chloride 107 mmol/L (98-107); Estimated GFR (African America >60 (>=60); Estimated GFR (Non-African Ame 50 (>=60); Globulin 3.2 g/dL; Glucose 239 mg/dL (74-106); Potassium 3.8 mmol/L (3.5-5.1); Sodium 142 mmol/L (136-145); Total Protein 5.7 g/dL (6.4-8.2)
[2024-01-23 08:00] LABS: Glucometer 239 mg/dL (74-106)
[2024-01-23] MEDS: ENOXAPARIN SODIUM 30 MG/0.3 ML SYRINGE SUBQ (08:31)
[2024-01-23] MEDS: INSULIN ASPART 300 UNIT/3 ML PEN SUBQ ×4 (08:31→23:57)
[2024-01-23] MEDS: ENSURE HP 237 ML LIQUID PO ×2 (08:31→22:13)
[2024-01-23] MEDS: METOPROLOL SUCCINATE 50 MG TAB.ER.24H 75 MG PO (08:32)
[2024-01-23] MEDS: BUPROPION HCL 100 MG SR TABLET 12H PO ×2 (08:32→22:12)
[2024-01-23] MEDS: CELECOXIB 200 MG CAPSULE PO ×2 (08:32→22:12)
[2024-01-23] MEDS: OXYBUTYNIN CHLORIDE 5 MG TAB XL 10 MG PO (08:32)
[2024-01-23] MEDS: DIGOXIN 125 MCG TABLET PO (08:32)
[2024-01-23] MEDS: SENNOSIDES 8.6 MG TABLET 8.59999999999999964 MG PO (08:32)
[2024-01-23] MEDS: FLUCONAZOLE 100 MG TABLET PO (08:32)
[2024-01-23] MEDS: ASPIRIN 81 MG TABLET.DR 162 MG PO (08:32)
[2024-01-23] MEDS: OMEPRAZOLE 40 MG CAPSULE.DR PO (08:32)
[2024-01-23] MEDS: GUAIFENESIN 600 MG TAB.ER.12H PO ×2 (08:32→22:13)
[2024-01-23] MEDS: FLUTICASONE PROPIONATE 50 MCG NASAL SPRAY 2 SPRAY NS (08:33)
[2024-01-23] MEDS: HYDROCORTISONE HC 2.5% RECTAL CREAM 30 APPLIC TUBE TOPICAL ×2 (08:35→22:13)
[2024-01-23] MEDS: BUDESONIDE 0.5 MG/2 ML AMPULE NEB IH ×2 (10:58→22:55)
--- NOTE | 2024-01-23 11:09 | PT.DAILY ---
Physical Therapy Daily Note PT Daily Note/Assess Start: 01/22/24 11:03 Freq: Status: Active Protocol: Document 01/23/24 10:35 [id number] (Rec: 01/23/24 11:09 [id number]) Physical Therapy Daily Note/Assessment Time In/Time Out Time In 10:35 Time Out 11:50 Subjective Subjective Patient very HOOPA. Reports feeling better. Still on vapo- therm Therapeutic Exercise Time Therapeutic Exercise Minutes (minutes) 10 Therapeutic Exercise Units 1 Therapeutic Exercise Treatment Therapeutic Exercise Treatment Seated exercises B LE in all planes with AROM, isometrics and MRE 10x with SPO2 maintaining at 92 percent. Standing exercises with marches, TR, hip flexion SPO2 decreased to 87 percent, but quickly adrianne to 92 percent with rest break. Therapeutic Activity Time Therapeutic Activity Minutes (minutes) 5 Therapeutic Activity Units 0 Therapeutic Activity Treatment Chair Transfer Ability Contact Guard Assist Therapeutic Activity Comments Sit to stand from chair CGA. Takes 2 steps fwd. using RW with CGA, mildly impulsive. Able to position self back into chair once sitting without issues. Total Physical Therapy Time Total Therapy Minutes 15 Total Physical Therapy Units 1 Summary Daily Note Summary Improving strength noted with exercises. Patient is limited with transfers and gait at this time due to being on vapo -therm, but is tolerating more activity in standing position with decreased impulsiveness. HH PT vs Skilled rehab depending on ambulation ability once off vapo-therm.
[2024-01-23 11:28] LABS: Glucometer 200 mg/dL (74-106)
--- NOTE | 2024-01-23 11:55 | PM.PN ---
Progress Note: Subjective Subjective Interval history: Patient feels better this am. Less SOB and chest not as tight. Mild cough but no sputum. Remains on vapotherm. Pulse controlled with oral medication. No chest pain or palpitations. Afebrile. Decreased appetite but no emesis or diarrhea. C/o weakness and working with PT. Exam Constitutional Vital Signs, click to edit/add: Last Vital Signs Temp 97.8 F 01/23/24 11:51 Pulse 70 01/23/24 11:51 Resp 18 01/23/24 04:34 BP 138/71 01/23/24 11:29 Pulse Ox 90 L 01/23/24 11:30 O2 Del Method Nasal Cannula 01/23/24 11:51 O2 Flow Rate 6 01/23/24 11:51 FiO2 40 01/23/24 10:59 Documenting provider has reviewed patient's vital signs: yes Common normals: no apparent distress, average body habitus, oriented x3 and alert HENMT Common normals: normocephalic Eye Common normals: PERRL and EOMs intact bilaterally Respiratory Common normals: normal respiratory effort Auscultation: diminished lung sounds Cardio Common normals: regular rate, regular rhythm, no gallops, no murmurs and no rub GI Common normals: Normal to inspection, nondistended, normoactive bowel sounds present and non-tender Extremity Common normals: no pedal edema Progress Note: Objective Labs Labs: Short CBC 01/23/24 Range/Units 05:00 WBC 7.5 (4.0-11.0) 10^3/uL Hgb 10.0 L (12.0-16.0) g/dL Hct 32.3 L (36.0-48.0) % Plt Count 191 (150-450) 10^3/uL BMP 01/23/24 05:00 Sodium 142 Potassium 3.8 Chloride 107 Carbon Dioxide 25.0 BUN 33.0 H Creatinine 1.05 H Glucose 239 H Calcium 8.6 Liver Function 01/23/24 Range/Units 05:00 Total Bilirubin 0.4 (0.2-1.0) mg/dL AST 34 (15-37) U/L ALT 33 (14-59) U/L Alkaline Phosphatase 45 L (46-116) U/L Albumin 2.5 L (3.4-5.0) g/dL Progress Note: A&P Assessment and Plan (1) RLL pneumonia: (2) Severe sepsis: (3) Acute hypoxic respiratory failure: (4) Atrial flutter, paroxysmal: (5) Acute exacerbation of COPD with asthma: (6) Rhinovirus: (7) FREDERIC (acute kidney injury): (8) Type 2 diabetes mellitus with hyperglycemia: (9) Hypertension: (10) CKD stage 3a, GFR 45-59 ml/min: (11) Moderate protein-calorie malnutrition: Plan Patient continues to improve. Sputum culture shows H. influenza which is cause of pneumonia. Continue levaquin and zosyn. Breathing improved and continue steroids and breathing treatments. Continue PT for weakness. Wean O2 as tolerated. In NSR and continue oral cardizem. Urinary Catheter Management Urinary Catheter Management Urethral: Cath placed during this visit: yes Urethral indwelling: No Insertion date: 01/20/24 Insertion time: 18:49
[2024-01-23 16:14] LABS: Glucometer 222 mg/dL (74-106)
[2024-01-23] MEDS: INSULIN DETEMIR 300 UNIT/3 ML INSULN.PEN 16 UNIT SQ (22:00)
[2024-01-23 22:12] LABS: Glucometer 317 mg/dL (74-106)
[2024-01-23] MEDS: TEMAZEPAM 15 MG CAPSULE PO (22:15)
[2024-01-24] VITALS (67 sets, daily range): BP systolic 120–150; BP diastolic 66–78; PULSE 59–85; TEMP 36.3–36.8; O2SAT 84–98
[2024-01-24] MEDS: METHYLPREDNISOLONE SOD SUCC PF 40 MG/ML VIAL IVP ×5 (01:49→23:04)
[2024-01-24] MEDS: LIDOCAINE 5% PATCH 1 PATCH TOPICAL ×2 (02:54→23:06)
[2024-01-24] MEDS: ACETAMINOPHEN 500 MG TABLET 1000 MG PO (03:20)
[2024-01-24] MEDS: LEVALBUTEROL HCL 0.63 MG/3 ML VIAL.NEB 0.630000000000000004 MG IH ×4 (04:53→22:53)
[2024-01-24] MEDS: IPRATROPIUM BROMIDE 0.5 MG/2.5 ML VIAL.NEB IH ×4 (04:53→22:53)
[2024-01-24 05:02] LABS: Hematocrit 32.5 % (36.0-48.0); Hemoglobin 10.3 g/dL (12.0-16.0); Mean Corpuscular HGB Conc 31.7 g/dL (29.9-35.2); Mean Corpuscular Hemoglobin 27.2 pg (26.7-34.0); Mean Platelet Volume 10.1 fL (9.5-13.5); Platelet Count 198 10^3/uL (150-450); Red Blood Count 3.78 10^6/uL (4.20-5.40); Red Cell Distribution Width 14.6 % (11.0-15.0); White Blood Count 9.6 10^3/uL (4.0-11.0)
[2024-01-24 05:27] LABS: Alanine Aminotransferase 44 U/L (14-59); Albumin Globulin Ratio 0.8; Albumin Level 2.5 g/dL (3.4-5.0); Alkaline Phosphatase 66 U/L (46-116); Anion Gap 14.6; Aspartate Amino Transferase 30 U/L (15-37); BUN Creatinine Ratio 31.6; Bilirubin Total 0.4 mg/dL (0.2-1.0); Calcium 8.5 mg/dL (8.5-10.1); Carbon Dioxide 26.6 mmol/L (21.0-32.0); Chloride 105 mmol/L (98-107); Digoxin 0.6 ng/mL (0.9-2.0); Estimated GFR (African America 53 (>=60); Estimated GFR (Non-African Ame 44 (>=60); Globulin 3.2 g/dL; Glucose 245 mg/dL (74-106); Potassium 3.2 mmol/L (3.5-5.1); Sodium 143 mmol/L (136-145); Total Protein 5.7 g/dL (6.4-8.2)
[2024-01-24] MEDS: GABAPENTIN 300 MG CAPSULE PO ×3 (05:36→21:12)
[2024-01-24] MEDS: DILTIAZEM HCL 60 MG TABLET PO ×4 (05:36→21:12)
[2024-01-24 05:37] LABS: Troponin I High Sensitivity 13.2 pg/mL (4.0-51.3)
[2024-01-24] MEDS: NYSTATIN 15 GM POWDER 1 APPLIC TOPICAL ×3 (05:37→23:03)
[2024-01-24] MEDS: LEVOTHYROXINE SODIUM 100 MCG TABLET PO (05:37)
[2024-01-24 05:46] LABS: Atypical Lymphocytes Abs Man 0.09; Lymphocytes Absolute Manual 0.86 10^3/uL (1.20-3.80); Monocytes Absolute Manual 0.86 10^3/uL (0.30-0.80); Segmented Neut Absolute Manual 7.77 10^3/uL (1.4-6.5)
[2024-01-24] MEDS: PIPERACILLIN SODIUM/TAZOBACTAM 3.375 GM in 0.9 % SODIUM CHLORIDE 50 ML IV ×3 (05:57→21:11)
[2024-01-24 07:55] LABS: Glucometer 234 mg/dL (74-106)
[2024-01-24] MEDS: INSULIN ASPART 300 UNIT/3 ML PEN SUBQ ×4 (08:12→21:23)
[2024-01-24] MEDS: METOPROLOL SUCCINATE 50 MG TAB.ER.24H 75 MG PO (08:14)
[2024-01-24] MEDS: BUPROPION HCL 100 MG SR TABLET 12H PO ×2 (08:14→20:11)
[2024-01-24] MEDS: ENOXAPARIN SODIUM 30 MG/0.3 ML SYRINGE SUBQ (08:14)
[2024-01-24] MEDS: GUAIFENESIN 600 MG TAB.ER.12H PO ×2 (08:14→20:11)
[2024-01-24] MEDS: OMEPRAZOLE 40 MG CAPSULE.DR PO (08:15)
[2024-01-24] MEDS: OXYBUTYNIN CHLORIDE 5 MG TAB XL 10 MG PO (08:15)
[2024-01-24] MEDS: CELECOXIB 200 MG CAPSULE PO ×2 (08:15→20:11)
[2024-01-24] MEDS: DIGOXIN 125 MCG TABLET PO (08:15)
[2024-01-24] MEDS: SENNOSIDES 8.6 MG TABLET 8.59999999999999964 MG PO (08:16)
[2024-01-24] MEDS: FLUCONAZOLE 100 MG TABLET PO (08:16)
[2024-01-24] MEDS: HYDROCORTISONE HC 2.5% RECTAL CREAM 30 APPLIC TUBE TOPICAL ×2 (08:16→20:11)
[2024-01-24] MEDS: ASPIRIN 81 MG TABLET.DR 162 MG PO (08:16)
[2024-01-24] MEDS: FLUTICASONE PROPIONATE 50 MCG NASAL SPRAY 2 SPRAY NS (08:17)
[2024-01-24] MEDS: ENSURE HP 237 ML LIQUID PO ×2 (08:17→20:12)
[2024-01-24] MEDS: REMOVE FENTANYL PATCH 1 EACH TOPICAL (08:18)
[2024-01-24] MEDS: FENTANYL 12 MCG/HR PATCH.TD72 TD (09:27)
[2024-01-24] MEDS: TRAMADOL HCL 50 MG TABLET 100 MG PO (09:27)
[2024-01-24] MEDS: BUDESONIDE 0.5 MG/2 ML AMPULE NEB IH ×2 (10:31→22:53)
--- NOTE | 2024-01-24 10:45 | RESP.RT ---
Titrated down to 5L
[2024-01-24 12:07] LABS: Glucometer 246 mg/dL (74-106)
[2024-01-24] MEDS: lidocaine HCL 15 ML, MAG HYDROX/ALUMINUM HYD/SIMETH 30 ML, diphenhydrAMINE HCL 75 MG PO ×3 (12:12→23:07)
--- NOTE | 2024-01-24 14:09 | PM.PN ---
Progress Note: Subjective Subjective Interval history: Patient continues to slowly improve. Off vapotherm and on nasal canula. Less SOB and chest not as tight. Mild cough but no sputum. Remains in NSR and normal pulse with oral medication. No chest pain or palpitations. Afebrile. Decreased appetite but no emesis or diarrhea. Strength improving and working with PT. Exam Constitutional Vital Signs, click to edit/add: Last Vital Signs Temp 97.4 F L 01/24/24 13:00 Pulse 71 01/24/24 13:49 Resp 20 01/24/24 13:00 BP 133/78 01/24/24 12:06 Pulse Ox 94 L 01/24/24 13:00 O2 Del Method Nasal Cannula 01/24/24 13:00 O2 Flow Rate 5 01/24/24 13:00 FiO2 40 01/23/24 10:59 Documenting provider has reviewed patient's vital signs: yes Common normals: no apparent distress, oriented x3 and alert HENMT Common normals: normocephalic Eye Common normals: PERRL and EOMs intact bilaterally Respiratory Common normals: normal respiratory effort and clear to auscultation bilaterally Cardio Common normals: regular rate, regular rhythm, no gallops, no murmurs and no rub GI Common normals: Normal to inspection, nondistended, normoactive bowel sounds present and non-tender Extremity Common normals: no pedal edema Progress Note: Objective Labs Labs: Short CBC 01/24/24 Range/Units 04:05 WBC 9.6 (4.0-11.0) 10^3/uL Hgb 10.3 L (12.0-16.0) g/dL Hct 32.5 L (36.0-48.0) % Plt Count 198 (150-450) 10^3/uL BMP 01/24/24 04:05 Sodium 143 Potassium 3.2 L Chloride 105 Carbon Dioxide 26.6 BUN 37.0 H Creatinine 1.17 H Glucose 245 H Calcium 8.5 Liver Function 01/24/24 Range/Units 04:05 Total Bilirubin 0.4 (0.2-1.0) mg/dL AST 30 (15-37) U/L ALT 44 (14-59) U/L Alkaline Phosphatase 66 (46-116) U/L Albumin 2.5 L (3.4-5.0) g/dL Progress Note: A&P Assessment and Plan (1) RLL pneumonia: (2) Severe sepsis: (3) Acute hypoxic respiratory failure: (4) Atrial flutter, paroxysmal: (5) Acute exacerbation of COPD with asthma: (6) Rhinovirus: (7) FREDERIC (acute kidney injury): (8) Type 2 diabetes mellitus with hyperglycemia: (9) Hypertension: (10) CKD stage 3a, GFR 45-59 ml/min: (11) Moderate protein-calorie malnutrition: Plan Patient continues to slowly improve. Continue antibiotics, steroids, and breathing treatments. Wean O2 as tolerated. Continue PT for weakness. C/o discomfort in mouth and on diflucan. Add magic mouthwash. Monitor labs and vitals. Likely ready for discharge in next 1-2 days. Urinary Catheter Management Urinary Catheter Management Urethral: Cath placed during this visit: yes Urethral indwelling: No Insertion date: 01/20/24 Insertion time: 18:49
[2024-01-24 16:28] LABS: Glucometer 242 mg/dL (74-106)
--- NOTE | 2024-01-24 16:33 | RESP.RT ---
increased to 6L
[2024-01-24] MEDS: INSULIN DETEMIR 300 UNIT/3 ML INSULN.PEN 16 UNIT SQ (20:09)
[2024-01-24 20:17] LABS: Glucometer 302 mg/dL (74-106)
[2024-01-24] MEDS: TEMAZEPAM 15 MG CAPSULE PO (21:20)
[2024-01-25] VITALS (53 sets, daily range): BP systolic 121–166; BP diastolic 64–73; PULSE 59–79; TEMP 36.1–36.6; O2SAT 82–97
[2024-01-25 04:30] LABS: Basophils Absolute Auto 0.1 10^3/uL (0.0-0.1); Basophils Percent Auto 0.5 % (0.2-2.0); Hematocrit 33.9 % (36.0-48.0); Immature Granulocytes Abs Auto 1.01 10^3/uL (0.00-0.03); Immature Granulocytes Pct Auto 9.3 % (0.0-0.5); Lymphocytes Absolute Auto 0.8 10^3/uL (1.2-3.8); Lymphocytes Percent Auto 7.7 % (20.5-60.0); Mean Corpuscular HGB Conc 32.4 g/dL (29.9-35.2); Mean Corpuscular Hemoglobin 27.7 pg (26.7-34.0); Mean Corpuscular Volume 85.4 fL (81.0-99.0); Mean Platelet Volume 9.6 fL (9.5-13.5); Monocytes Absolute Auto 0.6 10^3/uL (0.3-0.8); Monocytes Percent Auto 5.8 % (1.7-12.0); Neutrophils Absolute Auto 8.3 10^3/uL (1.4-6.5); Neutrophils Percent Auto 76.7 % (43.0-75.0); Platelet Count 196 10^3/uL (150-450); Red Blood Count 3.97 10^6/uL (4.20-5.40); Red Cell Distribution Width 14.4 % (11.0-15.0); White Blood Count 10.8 10^3/uL (4.0-11.0)
[2024-01-25] MEDS: LEVALBUTEROL HCL 0.63 MG/3 ML VIAL.NEB 0.630000000000000004 MG IH ×4 (04:31→22:23)
[2024-01-25] MEDS: IPRATROPIUM BROMIDE 0.5 MG/2.5 ML VIAL.NEB IH ×4 (04:31→22:23)
[2024-01-25 04:49] LABS: Alanine Aminotransferase 44 U/L (14-59); Albumin Globulin Ratio 0.9; Albumin Level 2.6 g/dL (3.4-5.0); Alkaline Phosphatase 59 U/L (46-116); Anion Gap 15.5; Aspartate Amino Transferase 28 U/L (15-37); Bilirubin Total 0.4 mg/dL (0.2-1.0); Calcium 8.7 mg/dL (8.5-10.1); Carbon Dioxide 27.6 mmol/L (21.0-32.0); Chloride 106 mmol/L (98-107); Estimated GFR (African America 52 (>=60); Estimated GFR (Non-African Ame 43 (>=60); Glucose 279 mg/dL (74-106); Potassium 3.1 mmol/L (3.5-5.1); Sodium 146 mmol/L (136-145); Total Protein 5.6 g/dL (6.4-8.2)
[2024-01-25 04:53] LABS: Digoxin 0.7 ng/mL (0.9-2.0)
[2024-01-25] MEDS: GABAPENTIN 300 MG CAPSULE PO ×3 (06:33→21:01)
[2024-01-25] MEDS: METHYLPREDNISOLONE SOD SUCC PF 40 MG/ML VIAL IVP ×4 (06:33→23:32)
[2024-01-25] MEDS: PIPERACILLIN SODIUM/TAZOBACTAM 3.375 GM in 0.9 % SODIUM CHLORIDE 50 ML IV ×3 (06:33→21:00)
[2024-01-25] MEDS: LEVOTHYROXINE SODIUM 100 MCG TABLET PO (06:33)
[2024-01-25] MEDS: LEVOFLOXACIN IN DEXTROSE 5 % 750 MG/150 ML IV.SOLN 100 MG IV (06:33)
[2024-01-25] MEDS: NYSTATIN 15 GM POWDER 1 APPLIC TOPICAL ×3 (06:34→21:02)
[2024-01-25] MEDS: DILTIAZEM HCL 60 MG TABLET PO ×4 (06:36→21:01)
[2024-01-25] MEDS: TRAMADOL HCL 50 MG TABLET 100 MG PO (06:40)
[2024-01-25] MEDS: INSULIN ASPART 300 UNIT/3 ML PEN SUBQ ×4 (08:30→23:08)
[2024-01-25 08:40] LABS: Glucometer 298 mg/dL (74-106)
[2024-01-25] MEDS: ENSURE HP 237 ML LIQUID PO ×2 (08:48→21:00)
[2024-01-25] MEDS: GUAIFENESIN 600 MG TAB.ER.12H PO ×2 (08:48→21:01)
[2024-01-25] MEDS: DIGOXIN 125 MCG TABLET PO (08:49)
[2024-01-25] MEDS: METOPROLOL SUCCINATE 50 MG TAB.ER.24H 75 MG PO (08:50)
[2024-01-25] MEDS: ACETAMINOPHEN 500 MG TABLET 1000 MG PO (08:51)
[2024-01-25] MEDS: ASPIRIN 81 MG TABLET.DR 162 MG PO (08:51)
[2024-01-25] MEDS: OXYBUTYNIN CHLORIDE 5 MG TAB XL 10 MG PO (08:51)
[2024-01-25] MEDS: CELECOXIB 200 MG CAPSULE PO ×2 (08:51→21:01)
[2024-01-25] MEDS: SENNOSIDES 8.6 MG TABLET 8.59999999999999964 MG PO (08:51)
[2024-01-25] MEDS: OMEPRAZOLE 40 MG CAPSULE.DR PO (08:51)
[2024-01-25] MEDS: ENOXAPARIN SODIUM 30 MG/0.3 ML SYRINGE SUBQ (08:51)
[2024-01-25] MEDS: BUPROPION HCL 100 MG SR TABLET 12H PO ×2 (08:51→21:00)
[2024-01-25] MEDS: FLUCONAZOLE 100 MG TABLET PO (08:51)
[2024-01-25] MEDS: HYDROCORTISONE HC 2.5% RECTAL CREAM 30 APPLIC TUBE TOPICAL ×2 (08:52→21:02)
[2024-01-25] MEDS: FLUTICASONE PROPIONATE 50 MCG NASAL SPRAY 2 SPRAY NS (08:52)
[2024-01-25] MEDS: lidocaine HCL 15 ML, MAG HYDROX/ALUMINUM HYD/SIMETH 30 ML, diphenhydrAMINE HCL 75 MG PO ×3 (08:53→22:22)
[2024-01-25] MEDS: BUDESONIDE 0.5 MG/2 ML AMPULE NEB IH ×2 (11:00→22:23)
--- NOTE | 2024-01-25 11:03 | PT.DAILY ---
Physical Therapy Daily Note PT Daily Note/Assess Start: 01/22/24 11:03 Freq: Status: Active Protocol: Document 01/25/24 10:58 ANNAMARIE (Rec: 01/25/24 11:03 ANNAMARIE [id number]) Physical Therapy Daily Note/Assessment Time In/Time Out Time In 09:00 Time Out 09:25 Pain In Pain N/A Pain Out Pain N/A Subjective Subjective Pt sitting in BS chair upon arrival. Agrees to PT. Some back pain. Reports her hearing is improving as her infection clears up - not [place] today. Therapeutic Exercise Time Therapeutic Exercise Minutes (minutes) 8 Therapeutic Exercise Units 1 Therapeutic Exercise Treatment Therapeutic Exercise Treatment Pt performs sitting bilat LE strengthening ex in both long sitting and legs lowered 10- 15x ea. Therapeutic Activity Time Therapeutic Activity Minutes (minutes) 15 Therapeutic Activity Units 1 Therapeutic Activity Treatment Chair Transfer Ability Contact Guard Assist Therapeutic Activity Comments Sit>stand 3x from chair with CGA but increased time needed. Static standing 2 min prior to gait (having conversation) Pt then amb in room 20'x2 with seated rest between ea. Pt easily fatigued. Able to sit on edge of chair unsupported without LOB between ea gait attempt. SpO2 at or above 90% throughout session. Total Physical Therapy Time Total Therapy Minutes 23 Total Physical Therapy Units 2 Summary Daily Note Summary Improved transfer and gait ability today.
--- NOTE | 2024-01-25 11:48 | PM.PN ---
Progress Note: Subjective Subjective Interval history: Patient stable this am. Placed on vapotherm overnight but currently back on nasal canula. Mild SOB and chest tightness. Mild cough but no sputum. Remains in NSR and normal pulse with oral medication. No chest pain or palpitations. Afebrile. Decreased appetite but no emesis or diarrhea. Strength improving and working with PT. Exam Constitutional Vital Signs, click to edit/add: Last Vital Signs Temp 97.8 F 01/25/24 08:00 Pulse 66 01/25/24 11:01 Resp 16 01/25/24 11:01 BP 142/72 H 01/25/24 06:36 Pulse Ox 90 L 01/25/24 11:01 O2 Del Method Nasal Cannula 01/25/24 11:01 O2 Flow Rate 4 01/25/24 11:01 FiO2 40 01/25/24 08:00 Documenting provider has reviewed patient's vital signs: yes Common normals: no apparent distress, oriented x3 and alert HENMT Common normals: normocephalic Eye Common normals: PERRL and EOMs intact bilaterally Respiratory Common normals: normal respiratory effort and clear to auscultation bilaterally Cardio Common normals: regular rate, regular rhythm, no gallops, no murmurs and no rub GI Common normals: Normal to inspection, nondistended, normoactive bowel sounds present and non-tender Extremity Common normals: no pedal edema Progress Note: Objective Labs Labs: Short CBC 01/25/24 Range/Units 04:13 WBC 10.8 (4.0-11.0) 10^3/uL Hgb 11.0 L (12.0-16.0) g/dL Hct 33.9 L (36.0-48.0) % Plt Count 196 (150-450) 10^3/uL BMP 01/25/24 04:13 Sodium 146 H Potassium 3.1 L Chloride 106 Carbon Dioxide 27.6 BUN 42.0 H Creatinine 1.20 H Glucose 279 H Calcium 8.7 Liver Function 01/25/24 Range/Units 04:13 Total Bilirubin 0.4 (0.2-1.0) mg/dL AST 28 (15-37) U/L ALT 44 (14-59) U/L Alkaline Phosphatase 59 (46-116) U/L Albumin 2.6 L (3.4-5.0) g/dL Progress Note: A&P Assessment and Plan (1) RLL pneumonia: (2) Severe sepsis: (3) Acute hypoxic respiratory failure: (4) Atrial flutter, paroxysmal: (5) Acute exacerbation of COPD with asthma: (6) Rhinovirus: (7) FREDERIC (acute kidney injury): (8) Type 2 diabetes mellitus with hyperglycemia: (9) Hypertension: (10) CKD stage 3a, GFR 45-59 ml/min: (11) Moderate protein-calorie malnutrition: Plan Patient continues to improve. On vapotherm overnight but back on NC. Wean oxygen as tolerated. Continue antibiotics, steroids, and breathing treatments. Continue PT. Likely will need SNF upon discharge. Remains in NSR. If continues to improve likely discharge in next 1-2 days. Urinary Catheter Management Urinary Catheter Management Urethral: Cath placed during this visit: yes Urethral indwelling: No Insertion date: 01/20/24 Insertion time: 18:49
--- NOTE | 2024-01-25 11:57 | CM.NOTE ---
Rounds made with Dr. Florez, no discharge today. Pt was on vapotherm through the night, RN will attempt to wean oxygen as tolerated. Pt will discharge to [facility] when medically stable for skilled therapy.
[2024-01-25 12:28] LABS: Glucometer 331 mg/dL (74-106)
[2024-01-25] MEDS: ONDANSETRON PF 4 MG/2 ML VIAL IV ×2 (12:31→18:00)
--- NOTE | 2024-01-25 12:55 | CM.NOTE ---
Important message From medicare discussed with pt, pt verbalizes understanding and signs paper. Original given to pt and copy placed on pt's chart.
--- NOTE | 2024-01-25 13:26 | SWNOTE1 ---
Pt is down to 4 liters oxygen. ITA sent updates to Bijal at [facility] for precert. Updates included progress notes, PT/OT notes, vitals, labs, and med list.
--- NOTE | 2024-01-25 14:48 | SWNOTE1 ---
ITA spoke to Bijal at [facility] and they are asking about vapotherm, ITA advised she is on 4 liters, BCC will submit to insurance updates.
[2024-01-25 16:56] LABS: Glucometer 314 mg/dL (74-106)
--- NOTE | 2024-01-25 18:26 | PC.NURSE ---
pt transfered to med-surg via wheelchair to rm [id number], all belonging sent with patient, bedside report given to Zo CHILEL
[2024-01-25 19:52] LABS: Glucometer 294 mg/dL (74-106)
[2024-01-25] MEDS: TEMAZEPAM 15 MG CAPSULE PO (21:01)
[2024-01-25] MEDS: INSULIN DETEMIR 300 UNIT/3 ML INSULN.PEN 16 UNIT SQ (21:02)
[2024-01-25] MEDS: LIDOCAINE 5% PATCH 1 PATCH TOPICAL (23:32)
[2024-01-26] VITALS (26 sets, daily range): BP systolic 122–155; BP diastolic 60–85; PULSE 56–85; RESP 14; TEMP 36.2–36.6; O2SAT 84–98
[2024-01-26] MEDS: IPRATROPIUM BROMIDE 0.5 MG/2.5 ML VIAL.NEB IH ×4 (04:10→22:40)
[2024-01-26] MEDS: LEVALBUTEROL HCL 0.63 MG/3 ML VIAL.NEB 0.630000000000000004 MG IH ×4 (04:10→22:40)
[2024-01-26] MEDS: lidocaine HCL 15 ML, MAG HYDROX/ALUMINUM HYD/SIMETH 30 ML, diphenhydrAMINE HCL 75 MG PO ×2 (04:26→09:53)
[2024-01-26 05:20] LABS: Basophils Absolute Auto 0.1 10^3/uL (0.0-0.1); Basophils Percent Auto 0.4 % (0.2-2.0); Eosinophils Percent Auto 0.1 % (0.9-7.0); Hematocrit 36.9 % (36.0-48.0); Hemoglobin 11.7 g/dL (12.0-16.0); Immature Granulocytes Abs Auto 1.55 10^3/uL (0.00-0.03); Immature Granulocytes Pct Auto 11.3 % (0.0-0.5); Lymphocytes Absolute Auto 0.9 10^3/uL (1.2-3.8); Lymphocytes Percent Auto 6.7 % (20.5-60.0); Mean Corpuscular HGB Conc 31.7 g/dL (29.9-35.2); Mean Corpuscular Hemoglobin 26.7 pg (26.7-34.0); Mean Corpuscular Volume 84.2 fL (81.0-99.0); Mean Platelet Volume 9.7 fL (9.5-13.5); Monocytes Absolute Auto 0.8 10^3/uL (0.3-0.8); Monocytes Percent Auto 5.8 % (1.7-12.0); Neutrophils Absolute Auto 10.4 10^3/uL (1.4-6.5); Neutrophils Percent Auto 75.7 % (43.0-75.0); Platelet Count 224 10^3/uL (150-450); Red Blood Count 4.38 10^6/uL (4.20-5.40); Red Cell Distribution Width 14.1 % (11.0-15.0); White Blood Count 13.7 10^3/uL (4.0-11.0)
[2024-01-26] MEDS: LEVOTHYROXINE SODIUM 100 MCG TABLET PO (05:37)
[2024-01-26] MEDS: METHYLPREDNISOLONE SOD SUCC PF 40 MG/ML VIAL IVP ×4 (05:37→23:53)
[2024-01-26] MEDS: PIPERACILLIN SODIUM/TAZOBACTAM 3.375 GM in 0.9 % SODIUM CHLORIDE 50 ML IV ×3 (05:37→21:01)
[2024-01-26] MEDS: GABAPENTIN 300 MG CAPSULE PO ×3 (05:38→20:56)
[2024-01-26] MEDS: DILTIAZEM HCL 60 MG TABLET PO ×4 (05:38→20:55)
[2024-01-26] MEDS: NYSTATIN 15 GM POWDER 1 APPLIC TOPICAL ×3 (05:38→20:57)
[2024-01-26 05:45] LABS: Alanine Aminotransferase 41 U/L (14-59); Albumin Globulin Ratio 0.7; Albumin Level 2.5 g/dL (3.4-5.0); Alkaline Phosphatase 67 U/L (46-116); Anion Gap 13.9; Aspartate Amino Transferase 24 U/L (15-37); BUN Creatinine Ratio 35.5; Bilirubin Total 0.4 mg/dL (0.2-1.0); Calcium 8.5 mg/dL (8.5-10.1); Carbon Dioxide 27.2 mmol/L (21.0-32.0); Chloride 103 mmol/L (98-107); Estimated GFR (African America 51 (>=60); Estimated GFR (Non-African Ame 42 (>=60); Globulin 3.5 g/dL; Glucose 270 mg/dL (74-106); Potassium 3.1 mmol/L (3.5-5.1); Sodium 141 mmol/L (136-145)
[2024-01-26 06:32] LABS: Digoxin 0.8 ng/mL (0.9-2.0)
[2024-01-26 07:44] LABS: Glucometer 242 mg/dL (74-106)
[2024-01-26] MEDS: FLUCONAZOLE 100 MG TABLET PO (08:59)
[2024-01-26] MEDS: OXYBUTYNIN CHLORIDE 5 MG TAB XL 10 MG PO (08:59)
[2024-01-26] MEDS: TRAMADOL HCL 50 MG TABLET 100 MG PO (08:59)
[2024-01-26] MEDS: BUPROPION HCL 100 MG SR TABLET 12H PO ×2 (08:59→20:55)
[2024-01-26] MEDS: METOPROLOL SUCCINATE 50 MG TAB.ER.24H 75 MG PO (08:59)
[2024-01-26] MEDS: ASPIRIN 81 MG TABLET.DR 162 MG PO (08:59)
[2024-01-26] MEDS: DIGOXIN 125 MCG TABLET PO (09:00)
[2024-01-26] MEDS: CELECOXIB 200 MG CAPSULE PO ×2 (09:00→20:56)
[2024-01-26] MEDS: OMEPRAZOLE 40 MG CAPSULE.DR PO (09:00)
[2024-01-26] MEDS: GUAIFENESIN 600 MG TAB.ER.12H PO ×2 (09:00→20:56)
[2024-01-26] MEDS: SENNOSIDES 8.6 MG TABLET 8.59999999999999964 MG PO (09:00)
[2024-01-26] MEDS: INSULIN ASPART 300 UNIT/3 ML PEN SUBQ ×4 (09:00→21:00)
[2024-01-26] MEDS: ENOXAPARIN SODIUM 30 MG/0.3 ML SYRINGE SUBQ (09:00)
[2024-01-26] MEDS: ENSURE HP 237 ML LIQUID PO ×2 (09:00→20:56)
[2024-01-26] MEDS: HYDROCORTISONE HC 2.5% RECTAL CREAM 30 APPLIC TUBE TOPICAL ×2 (09:00→20:57)
[2024-01-26] MEDS: FLUTICASONE PROPIONATE 50 MCG NASAL SPRAY 2 SPRAY NS (09:00)
--- NOTE | 2024-01-26 10:31 | PT.DAILY ---
Physical Therapy Daily Note PT Daily Note/Assess Start: 01/22/24 11:03 Freq: Status: Active Protocol: Document 01/26/24 10:26 ANNAMARIE (Rec: 01/26/24 10:31 ANNAMARIE [id number]) Physical Therapy Daily Note/Assessment Time In/Time Out Time In 09:30 Time Out 09:40 Pain In Pain N/A Pain Out Pain N/A Subjective Subjective Pt supine upon arrival. Pt is back on Vapotherm today. SpO2 95% prior to session. Reports unable to eat what she ordered for breakfast due to sores in her mouth. Offered to reorder something softer and less acidic and pt agrees. BReakfast is reordered. Pt agrees to get into chair for breakfast. Therapeutic Exercise Time Therapeutic Exercise Minutes (minutes) 5 Therapeutic Exercise Units 1 Therapeutic Exercise Treatment Therapeutic Exercise Treatment Seated bilat LE strengthening ex complete while sitting in BS chair 10x ea. Therapeutic Activity Time Therapeutic Activity Minutes (minutes) 4 Therapeutic Activity Units 0 Therapeutic Activity Treatment Bed Mobility Ability Standby Assistance Chair Transfer Ability Standby Assistance Therapeutic Activity Comments Supine>sit SBA with increased time needed. Pt sits EOB without LOB while chair is moved closer to vapotherm. Pt sit>stand to RW SBA and amb 3' to BS chair CGA for safety. Pt is steady with transfer and gait for this short distance. Seated ex complete in BS chair. Upon completion breakfast arrived and is set up for pt. Pt remains in BS chair with call light in reach and needs met. Spo2 94% upon completion. Total Physical Therapy Time Total Therapy Minutes 9 Total Physical Therapy Units 1 Summary Daily Note Summary Good tolerance with activity with minimal fatigue. Spo2 drops to 94% with transfer on Vapotherm.
[2024-01-26 11:11] LABS: Glucometer 376 mg/dL (74-106)
[2024-01-26 11:11] LABS: Glucometer 532 mg/dL (74-106)
[2024-01-26] MEDS: BUDESONIDE 0.5 MG/2 ML AMPULE NEB IH ×2 (11:17→22:40)
--- NOTE | 2024-01-26 11:35 | CM.NOTE ---
Rounds made with Dr. Florez, pt back on vapotherm d/t decreased oxygen sat's. Pt does verbalize she wears a machine at night at home. Pt was unsure of what type of machine, spoke with pt's son and he said she was unable to tolerate mask on CPAP so she wears 3.5 L oxygen at night. Son states she is a mouth breather so nasal prongs did not work for pt and she refused mask. Son states pt has sleep apnea.
--- NOTE | 2024-01-26 12:01 | PM.PN ---
Progress Note: Subjective Subjective Interval history: Patient stable this am. Continues to have desaturation overnight and placed on vapotherm but able to use NC during the day. Reports home PAP machine and likely AFUA. Not using machine due to pressure for several weeks. Mild SOB and cough at rest. Continues to have weakness and problems with transfers. Decreased appetite but no emesis or diarrhea. No chest pain or palpitations. Exam Constitutional Vital Signs, click to edit/add: Last Vital Signs Temp 97.1 F L 01/26/24 07:58 Pulse 71 01/26/24 12:00 Resp 18 01/26/24 07:58 BP 138/81 01/26/24 07:58 Pulse Ox 92 L 01/26/24 12:00 O2 Del Method Nasal Cannula 01/26/24 11:18 O2 Flow Rate 6 01/26/24 11:18 FiO2 50 01/26/24 10:06 Documenting provider has reviewed patient's vital signs: yes Common normals: no apparent distress, oriented x3 and alert HENMT Common normals: normocephalic Eye Common normals: PERRL and EOMs intact bilaterally Respiratory Common normals: normal respiratory effort and clear to auscultation bilaterally Cardio Common normals: regular rate, regular rhythm, no gallops, no murmurs and no rub GI Common normals: Normal to inspection, nondistended, normoactive bowel sounds present and non-tender Extremity Common normals: no pedal edema Progress Note: Objective Labs Labs: Short CBC 01/26/24 Range/Units 04:35 WBC 13.7 H (4.0-11.0) 10^3/uL Hgb 11.7 L (12.0-16.0) g/dL Hct 36.9 (36.0-48.0) % Plt Count 224 (150-450) 10^3/uL BMP 01/26/24 04:35 Sodium 141 Potassium 3.1 L Chloride 103 Carbon Dioxide 27.2 BUN 43.0 H Creatinine 1.21 H Glucose 270 H Calcium 8.5 Liver Function 01/26/24 Range/Units 04:35 Total Bilirubin 0.4 (0.2-1.0) mg/dL AST 24 (15-37) U/L ALT 41 (14-59) U/L Alkaline Phosphatase 67 (46-116) U/L Albumin 2.5 L (3.4-5.0) g/dL Progress Note: A&P Assessment and Plan (1) RLL pneumonia: (2) Severe sepsis: (3) Acute hypoxic respiratory failure: (4) Atrial flutter, paroxysmal: (5) Acute exacerbation of COPD with asthma: (6) Rhinovirus: (7) AFUA (obstructive sleep apnea): (8) FREDERIC (acute kidney injury): (9) Type 2 diabetes mellitus with hyperglycemia: (10) Hypertension: (11) CKD stage 3a, GFR 45-59 ml/min: (12) Moderate protein-calorie malnutrition: Plan Patient improving and continue antibiotics, steroids, and breathing treatments. Desaturates overnight and history of AFUA and should be on PAP at home but not using. Start using BiPAP QHS and patient will need to start using home PAP machine. Continue PT/OT for weakness. Monitor labs and vitals. Urinary Catheter Management Urinary Catheter Management Urethral: Cath placed during this visit: yes Urethral indwelling: No Insertion date: 01/20/24 Insertion time: 18:49
--- NOTE | 2024-01-26 14:11 | SWNOTE1 ---
ITA sent updates PT note, progress note, labs, vitals, and nursing notes to Jessica at [facility]. She did message ITA back and they will need her weaned off of vapotherm. ITA did advice Jessica that we are going to try BIPAP this evening if needed.
[2024-01-26 15:54] LABS: Glucometer 287 mg/dL (74-106)
[2024-01-26 20:10] LABS: Glucometer 294 mg/dL (74-106)
[2024-01-26] MEDS: TEMAZEPAM 15 MG CAPSULE PO (20:56)
[2024-01-26] MEDS: INSULIN DETEMIR 300 UNIT/3 ML INSULN.PEN 16 UNIT SQ (21:00)
--- NOTE | 2024-01-26 23:10 | RESP.RT ---
Pt placed back on BIPAP after breathing tx. 09/23 Fi02 50%
[2024-01-26] MEDS: LIDOCAINE 5% PATCH 1 PATCH TOPICAL (23:53)
[2024-01-27] VITALS (26 sets, daily range): BP systolic 143–161; BP diastolic 72–91; PULSE 59–87; RESP 14; TEMP 35.7–36.7; O2SAT 92–99
[2024-01-27] MEDS: LEVALBUTEROL HCL 0.63 MG/3 ML VIAL.NEB 0.630000000000000004 MG IH ×3 (04:07→22:36)
[2024-01-27] MEDS: IPRATROPIUM BROMIDE 0.5 MG/2.5 ML VIAL.NEB IH ×3 (04:07→22:36)
--- NOTE | 2024-01-27 04:07 | RESP.RT ---
decreased Fi02 from 50% down to 40%
[2024-01-27] MEDS: LEVOTHYROXINE SODIUM 100 MCG TABLET PO (05:10)
[2024-01-27] MEDS: GABAPENTIN 300 MG CAPSULE PO ×3 (05:10→21:01)
[2024-01-27] MEDS: NYSTATIN 15 GM POWDER 1 APPLIC TOPICAL ×3 (05:11→21:02)
[2024-01-27] MEDS: LEVOFLOXACIN IN DEXTROSE 5 % 750 MG/150 ML IV.SOLN 100 MG IV (05:12)
[2024-01-27] MEDS: DILTIAZEM HCL 60 MG TABLET PO ×4 (05:15→21:01)
[2024-01-27] MEDS: TRAMADOL HCL 50 MG TABLET 100 MG PO (05:28)
[2024-01-27] MEDS: METHYLPREDNISOLONE SOD SUCC PF 40 MG/ML VIAL IVP ×4 (05:28→23:12)
[2024-01-27 05:44] LABS: Basophils Percent Auto 0.2 % (0.2-2.0); Hematocrit 35.9 % (36.0-48.0); Hemoglobin 11.5 g/dL (12.0-16.0); Immature Granulocytes Abs Auto 1.34 10^3/uL (0.00-0.03); Immature Granulocytes Pct Auto 10.8 % (0.0-0.5); Lymphocytes Absolute Auto 0.8 10^3/uL (1.2-3.8); Mean Corpuscular Hemoglobin 27.3 pg (26.7-34.0); Mean Corpuscular Volume 85.1 fL (81.0-99.0); Mean Platelet Volume 9.5 fL (9.5-13.5); Monocytes Absolute Auto 0.6 10^3/uL (0.3-0.8); Monocytes Percent Auto 4.7 % (1.7-12.0); Neutrophils Absolute Auto 9.7 10^3/uL (1.4-6.5); Neutrophils Percent Auto 78.3 % (43.0-75.0); Platelet Count 223 10^3/uL (150-450); Red Blood Count 4.22 10^6/uL (4.20-5.40); Red Cell Distribution Width 14.4 % (11.0-15.0); White Blood Count 12.4 10^3/uL (4.0-11.0)
[2024-01-27 06:04] LABS: Alanine Aminotransferase 42 U/L (14-59); Albumin Globulin Ratio 0.7; Albumin Level 2.6 g/dL (3.4-5.0); Alkaline Phosphatase 59 U/L (46-116); Anion Gap 14.7; Aspartate Amino Transferase 17 U/L (15-37); BUN Creatinine Ratio 38.2; Bilirubin Total 0.4 mg/dL (0.2-1.0); Calcium 8.9 mg/dL (8.5-10.1); Carbon Dioxide 27.5 mmol/L (21.0-32.0); Chloride 104 mmol/L (98-107); Estimated GFR (African America 57 (>=60); Estimated GFR (Non-African Ame 47 (>=60); Globulin 3.5 g/dL; Glucose 255 mg/dL (74-106); Potassium 3.2 mmol/L (3.5-5.1); Sodium 143 mmol/L (136-145); Total Protein 6.1 g/dL (6.4-8.2)
[2024-01-27] MEDS: PIPERACILLIN SODIUM/TAZOBACTAM 3.375 GM in 0.9 % SODIUM CHLORIDE 50 ML IV ×3 (06:31→23:03)
[2024-01-27 07:29] LABS: Glucometer 258 mg/dL (74-106)
[2024-01-27] MEDS: ENSURE HP 237 ML LIQUID PO ×2 (08:59→21:01)
[2024-01-27] MEDS: METOPROLOL SUCCINATE 50 MG TAB.ER.24H 75 MG PO (08:59)
[2024-01-27] MEDS: SENNOSIDES 8.6 MG TABLET 8.59999999999999964 MG PO (08:59)
[2024-01-27] MEDS: ENOXAPARIN SODIUM 30 MG/0.3 ML SYRINGE SUBQ (09:00)
[2024-01-27] MEDS: OXYBUTYNIN CHLORIDE 5 MG TAB XL 10 MG PO (09:00)
[2024-01-27] MEDS: OMEPRAZOLE 40 MG CAPSULE.DR PO (09:00)
[2024-01-27] MEDS: ASPIRIN 81 MG TABLET.DR 162 MG PO (09:00)
[2024-01-27] MEDS: FLUCONAZOLE 100 MG TABLET PO (09:00)
[2024-01-27] MEDS: GUAIFENESIN 600 MG TAB.ER.12H PO ×2 (09:00→21:01)
[2024-01-27] MEDS: BUPROPION HCL 100 MG SR TABLET 12H PO ×2 (09:00→21:04)
[2024-01-27] MEDS: DIGOXIN 125 MCG TABLET PO (09:00)
[2024-01-27] MEDS: CELECOXIB 200 MG CAPSULE PO ×2 (09:00→21:01)
[2024-01-27] MEDS: FLUTICASONE PROPIONATE 50 MCG NASAL SPRAY 2 SPRAY NS (09:01)
[2024-01-27] MEDS: HYDROCORTISONE HC 2.5% RECTAL CREAM 30 APPLIC TUBE TOPICAL ×2 (09:01→21:02)
[2024-01-27] MEDS: FENTANYL 12 MCG/HR PATCH.TD72 TD (09:10)
[2024-01-27] MEDS: INSULIN ASPART 300 UNIT/3 ML PEN SUBQ ×4 (09:11→21:02)
--- NOTE | 2024-01-27 09:11 | SWNOTE1 ---
Pt did maintain on Bipap over night. ITA let Jessica at [facility] know. Pt is still on 6 liters and needs to be maintaining on 5 liters for BCC to take. Jessica voiced she did start precert and it is still pending at this time.
[2024-01-27] MEDS: REMOVE FENTANYL PATCH 1 EACH TOPICAL (09:14)
--- NOTE | 2024-01-27 10:09 | SWNOTE1 ---
SW spoke to pt's son, Dario, and requested they bring in pt's pap machine from home. He voiced he will bring it in. He stated she is a mouth breather and she did not like mask so has not been wearing it. SW let him know that our respiratory team would like to look at it and see if they can adjust settings. He voiced he will bring it in. SW did update him in regards to [facility] and precert. ITA stated it is still pending, but she does have to be maintaining on 5 liters and she is currently on 6 liters. HE voiced understanding.
--- NOTE | 2024-01-27 10:33 | PM.PN ---
Progress Note: Subjective Subjective Interval history: Patient continues to slowly improve. Placed on BiPAP overnight and tolerated well. Maintained normal SpO2. Currently on 6 LPM. States hasn't used home PAP device for years and typically used 3 LPM during sleep. Still mild SOB and cough at rest. Continues to have weakness and problems with transfers. Decreased appetite but no emesis or diarrhea. No chest pain or palpitations. Exam Constitutional Vital Signs, click to edit/add: Last Vital Signs Temp 97.0 F L 01/27/24 08:05 Pulse 69 01/27/24 09:50 Resp 18 01/27/24 08:07 BP 147/82 H 01/27/24 08:05 Pulse Ox 95 01/27/24 08:05 O2 Del Method Nasal Cannula 01/27/24 08:05 O2 Flow Rate 6 01/27/24 08:05 FiO2 40 01/27/24 04:25 Documenting provider has reviewed patient's vital signs: yes Common normals: no apparent distress, oriented x3 and alert HENMT Common normals: normocephalic Eye Common normals: PERRL and EOMs intact bilaterally Respiratory Common normals: normal respiratory effort and clear to auscultation bilaterally Cardio Common normals: regular rate, regular rhythm, no gallops, no murmurs and no rub GI Common normals: Normal to inspection, nondistended, normoactive bowel sounds present and non-tender Extremity Common normals: no pedal edema Progress Note: Objective Labs Labs: Short CBC 01/27/24 Range/Units 05:35 WBC 12.4 H (4.0-11.0) 10^3/uL Hgb 11.5 L (12.0-16.0) g/dL Hct 35.9 L (36.0-48.0) % Plt Count 223 (150-450) 10^3/uL BMP 01/27/24 05:35 Sodium 143 Potassium 3.2 L Chloride 104 Carbon Dioxide 27.5 BUN 42.0 H Creatinine 1.10 H Glucose 255 H Calcium 8.9 Liver Function 01/27/24 Range/Units 05:35 Total Bilirubin 0.4 (0.2-1.0) mg/dL AST 17 (15-37) U/L ALT 42 (14-59) U/L Alkaline Phosphatase 59 (46-116) U/L Albumin 2.6 L (3.4-5.0) g/dL Progress Note: A&P Assessment and Plan (1) RLL pneumonia: (2) Severe sepsis: (3) Acute hypoxic respiratory failure: (4) Atrial flutter, paroxysmal: (5) Acute exacerbation of COPD with asthma: (6) Rhinovirus: (7) AFUA (obstructive sleep apnea): (8) FREDERIC (acute kidney injury): (9) Type 2 diabetes mellitus with hyperglycemia: (10) Hypertension: (11) CKD stage 3a, GFR 45-59 ml/min: (12) Moderate protein-calorie malnutrition: Plan SOB slowly improving and continue antibiotics, steroids, and breathing treatments. Continues to have hypoxia during sleep and untreated AFUA. Did well on hospital BiPAP machine. Nursing will check with family to see if patient has home PAP machine and need to bring to hospital and will need at SNF. Wean oxygen as tolerated. Continue PT/OT for weakness. Urinary Catheter Management Urinary Catheter Management Urethral: Cath placed during this visit: yes Urethral indwelling: No Insertion date: 01/20/24 Insertion time: 18:49
--- NOTE | 2024-01-27 10:51 | CM.NOTE ---
Rounds made with Dr. Florez. Dr. Florez discussed need to utilize home Pap machine. Salome voices to have son bring her machine in to facility. Will notify son and have him bring the machine in to hospital. No discharge today.
[2024-01-27 11:19] LABS: Glucometer 317 mg/dL (74-106)
[2024-01-27] MEDS: BUDESONIDE 0.5 MG/2 ML AMPULE NEB IH ×2 (11:21→22:36)
--- NOTE | 2024-01-27 11:49 | RESP.RT ---
SpO2 98% on 8 LPM NC, decreased to 6 LPM.
--- NOTE | 2024-01-27 12:00 | SWNOTE1 ---
ITA spoke with Jessica at [facility]. They were able to rent a oxygen device that will go up to 10 liters of oxygen for pt. Pt is NOT approved yet, but Jessica will send updates to insurance once ITA sends over. ITA advised Jessica that pt's son brouhgt her home cpap in and our respiratory team is looking at it and adjusting if needed. Cpap is from 2019. ITA sent over updated progress note, OT note, labs, vitals, and med list to Jessica at [facility].
--- NOTE | 2024-01-27 12:21 | PT.DAILY ---
Physical Therapy Daily Note PT Daily Note/Assess Start: 01/22/24 11:03 Freq: Status: Active Protocol: Document 01/27/24 12:12 YOLIENE (Rec: 01/27/24 12:21 SPANFALONE [id number]) Physical Therapy Daily Note/Assessment Time In/Time Out Time In 10:45 Time Out 11:00 Pain In Pain N/A Pain Out Pain N/A Subjective Subjective Pt supine upon arrival. On 8L O2 today at 100% prior to session. Agrees to PT. Therapeutic Exercise Time Therapeutic Exercise Minutes (minutes) 5 Therapeutic Exercise Units 1 Therapeutic Exercise Treatment Therapeutic Exercise Treatment Standing bilat LE strengthening ex complete at RW with bilat UE support. HR, marches, HS curls, mini squats , hip flexion and hip abduction 5-10x ea. Spo2 97% upon completion. takes seated rest break prior to amb. Therapeutic Activity Treatment Bed Mobility Ability Standby Assistance Chair Transfer Ability Standby Assistance Therapeutic Activity Comments Supine>sit SBA with increased time and assistance needed for O2 lines. Sit>stand to RW SBA - performs standing ther ex with good tolerance - no LOB but does require bilat UE support on RW. Pt amb in room 80' with RW, SBA with assist for O2 lines. Spo2 96% upon completion. Returned to supine SBA. Son is present. Call light is within reach and needs met. Total Physical Therapy Time Total Therapy Minutes 5 Total Physical Therapy Units 1 Summary Daily Note Summary Improving gait endurance and O2 sats stable with gait and ther ex on 8L O2 through NC. Edit Result 01/27/24 12:12 ANNAMARIE (Rec: 01/27/24 12:21 SPANFALONE [id number]) Physical Therapy Daily Note/Assessment Therapeutic Activity Time Therapeutic Activity Minutes (minutes) 4 Therapeutic Activity Units 0 Total Physical Therapy Time Total Therapy Minutes 9
[2024-01-27 16:23] LABS: Glucometer 337 mg/dL (74-106)
[2024-01-27 20:42] LABS: Glucometer 297 mg/dL (74-106)
[2024-01-27] MEDS: INSULIN DETEMIR 300 UNIT/3 ML INSULN.PEN 16 UNIT SQ (21:03)
[2024-01-27] MEDS: TEMAZEPAM 15 MG CAPSULE PO (21:03)
[2024-01-27] MEDS: lidocaine HCL 15 ML, MAG HYDROX/ALUMINUM HYD/SIMETH 30 ML, diphenhydrAMINE HCL 75 MG PO (21:04)
--- NOTE | 2024-01-27 23:04 | RESP.RT ---
placed pt on home bipap/cpap unit with 5L 02 bleed in. Spo2 94%.
[2024-01-27] MEDS: LIDOCAINE 5% PATCH 1 PATCH TOPICAL (23:12)
[2024-01-28] VITALS (13 sets, daily range): BP systolic 138–160; BP diastolic 70–77; PULSE 59–86; TEMP 36.1–37.1; O2SAT 86–98
[2024-01-28] MEDS: TRAMADOL HCL 50 MG TABLET 100 MG PO ×2 (01:31→08:54)
[2024-01-28] MEDS: LEVALBUTEROL HCL 0.63 MG/3 ML VIAL.NEB 0.630000000000000004 MG IH ×2 (04:07→11:07)
[2024-01-28] MEDS: IPRATROPIUM BROMIDE 0.5 MG/2.5 ML VIAL.NEB IH ×2 (04:07→11:06)
--- NOTE | 2024-01-28 04:07 | RESP.RT ---
decreased down to 4L
--- NOTE | 2024-01-28 04:29 | RESP.RT ---
decreased down to 4L
[2024-01-28 05:04] LABS: Basophils Percent Auto 0.3 % (0.2-2.0); Hematocrit 37.5 % (36.0-48.0); Hemoglobin 11.7 g/dL (12.0-16.0); Immature Granulocytes Abs Auto 0.91 10^3/uL (0.00-0.03); Lymphocytes Absolute Auto 0.7 10^3/uL (1.2-3.8); Lymphocytes Percent Auto 5.5 % (20.5-60.0); Mean Corpuscular HGB Conc 31.2 g/dL (29.9-35.2); Mean Corpuscular Volume 86.6 fL (81.0-99.0); Mean Platelet Volume 9.7 fL (9.5-13.5); Monocytes Absolute Auto 0.6 10^3/uL (0.3-0.8); Monocytes Percent Auto 4.4 % (1.7-12.0); Neutrophils Absolute Auto 10.8 10^3/uL (1.4-6.5); Neutrophils Percent Auto 82.8 % (43.0-75.0); Platelet Count 210 10^3/uL (150-450); Red Blood Count 4.33 10^6/uL (4.20-5.40); Red Cell Distribution Width 14.3 % (11.0-15.0)
[2024-01-28 05:26] LABS: Alanine Aminotransferase 38 U/L (14-59); Albumin Globulin Ratio 0.8; Albumin Level 2.4 g/dL (3.4-5.0); Alkaline Phosphatase 62 U/L (46-116); Anion Gap 12.7; Aspartate Amino Transferase 21 U/L (15-37); Bilirubin Total 0.4 mg/dL (0.2-1.0); Calcium 9.2 mg/dL (8.5-10.1); Carbon Dioxide 27.5 mmol/L (21.0-32.0); Chloride 105 mmol/L (98-107); Estimated GFR (African America 59 (>=60); Estimated GFR (Non-African Ame 49 (>=60); Globulin 3.1 g/dL; Glucose 295 mg/dL (74-106); Potassium 3.2 mmol/L (3.5-5.1); Sodium 142 mmol/L (136-145); Total Protein 5.5 g/dL (6.4-8.2)
[2024-01-28] MEDS: METHYLPREDNISOLONE SOD SUCC PF 40 MG/ML VIAL IVP ×2 (05:48→11:59)
[2024-01-28] MEDS: PIPERACILLIN SODIUM/TAZOBACTAM 3.375 GM in 0.9 % SODIUM CHLORIDE 50 ML IV (05:49)
[2024-01-28] MEDS: DILTIAZEM HCL 60 MG TABLET PO ×2 (05:49→11:59)
[2024-01-28] MEDS: LEVOTHYROXINE SODIUM 100 MCG TABLET PO (05:49)
[2024-01-28] MEDS: GABAPENTIN 300 MG CAPSULE PO (05:49)
[2024-01-28 07:22] LABS: Glucometer 321 mg/dL (74-106)
[2024-01-28] MEDS: ENOXAPARIN SODIUM 30 MG/0.3 ML SYRINGE SUBQ (08:53)
[2024-01-28] MEDS: BUPROPION HCL 100 MG SR TABLET 12H PO (08:53)
[2024-01-28] MEDS: ENSURE HP 237 ML LIQUID PO (08:53)
[2024-01-28] MEDS: GUAIFENESIN 600 MG TAB.ER.12H PO (08:54)
[2024-01-28] MEDS: METOPROLOL SUCCINATE 50 MG TAB.ER.24H 75 MG PO (08:54)
[2024-01-28] MEDS: DIGOXIN 125 MCG TABLET PO (08:54)
[2024-01-28] MEDS: FLUCONAZOLE 100 MG TABLET PO (08:54)
[2024-01-28] MEDS: OXYBUTYNIN CHLORIDE 5 MG TAB XL 10 MG PO (08:54)
[2024-01-28] MEDS: ASPIRIN 81 MG TABLET.DR 162 MG PO (08:54)
[2024-01-28] MEDS: CELECOXIB 200 MG CAPSULE PO (08:55)
[2024-01-28] MEDS: OMEPRAZOLE 40 MG CAPSULE.DR PO (08:55)
[2024-01-28] MEDS: SENNOSIDES 8.6 MG TABLET 8.59999999999999964 MG PO (08:55)
[2024-01-28] MEDS: INSULIN ASPART 300 UNIT/3 ML PEN SUBQ ×2 (08:55→11:59)
[2024-01-28] MEDS: FLUTICASONE PROPIONATE 50 MCG NASAL SPRAY 2 SPRAY NS (08:56)
[2024-01-28] MEDS: HYDROCORTISONE HC 2.5% RECTAL CREAM 30 APPLIC TUBE TOPICAL (08:56)
--- NOTE | 2024-01-28 09:33 | SWNOTE1 ---
ITA received email from Jessica at [facility], pt is approved. ITA did send over vitals to Jessica as pt remained on nasal canula and used her pap machine over night and did well.
--- NOTE | 2024-01-28 10:36 | PT.DAILY ---
Physical Therapy Daily Note PT Daily Note/Assess Start: 01/22/24 11:03 Freq: Status: Active Protocol: Document 01/28/24 10:30 ANNAMARIE (Rec: 01/28/24 10:36 ANNAMARIE [id number]) Physical Therapy Daily Note/Assessment Time In/Time Out Time In 09:47 Time Out 10:13 Pain In Pain N/A Pain Out Pain N/A Subjective Subjective Pt supine upon arrival. agrees to PT. Wishes to have hair washes. agrees to let ENVIRONMENTAL AUDITOR assist with shower cap. On 4L O2 today. Therapeutic Exercise Time Therapeutic Exercise Minutes (minutes) 8 Therapeutic Exercise Units 1 Therapeutic Exercise Treatment Therapeutic Exercise Treatment Seated bilat LE strengthening ex complete 10x while sitting EOB. Standing ex complete with bilat UE support on RW. Therapeutic Activity Time Therapeutic Activity Minutes (minutes) 15 Therapeutic Activity Units 1 Therapeutic Activity Treatment Bed Mobility Ability Standby Assistance Chair Transfer Ability Standby Assistance Therapeutic Activity Comments Supine>sit SBA. Sits EOB 6 min unsupported while hair is washed. Pt completes seated ex while sitting unsupported at EOB without LOB. Pt able to wash face with set up only. Needs assistance to epifanio and doff new gown. Sit>stand SBA amb 60' in room with RW, SBA and assist for O2 lines. Pt takes seated rest break before completing standing ex. Sit> stand SBA. Standing ther ex complete at RW SBA. Returned to supine SBA with increased time needed. Spo2 91% upon completion. Total Physical Therapy Time Total Therapy Minutes 23 Total Physical Therapy Units 2 Summary Daily Note Summary Requires increased time to complete transfers. Unable to wash her own hair and keep arms up long enough to scrub shower cap which requires total assistance from ENVIRONMENTAL AUDITOR. Pt cont to participate with PT and tolerates sessions well.
--- NOTE | 2024-01-28 10:43 | CM.NOTE ---
Rounds made with Dr. Florez. Plan for discharge today to [facility] for skilled therapy.
--- NOTE | 2024-01-28 10:53 | SWNOTE1 ---
Pt can go to [facility] skilled.
[2024-01-28 11:05] LABS: Glucometer 393 mg/dL (74-106)
[2024-01-28] MEDS: BUDESONIDE 0.5 MG/2 ML AMPULE NEB IH (11:07)
--- NOTE | 2024-01-28 11:13 | P.DS_ITS ---
DS: Providers Provider Date of admission: 01/20/24 21:27 Primary care physician: LENY JOHN Consults: 01/20/24 Consult to Dietitian Routine Reason For Exam: Protocal per admission order set Reason for consultation: Unknown if has lost weight Has provider been notified: Yes Consult to Dietitian Routine Reason For Exam: Unknown if patient has lost weight Reason for consultation: Per admission assessment protocal 01/21/24 Consult to Cardiology Routine Reason for consultation: Tachycardia Has provider been notified: No 01/21/24 06:13 Consult to Pharmacy Routine Consulting Provider: Reason for consultation: Please [place] me when Med Rec is Updated Has provider been notified: No 01/21/24 09:00 Occupational Therapy Eval and Treat Routine Reason for consultation: Weakness Has provider been notified: No Physical Therapy Eval and Treat Routine Reason for consultation: Weakness Has provider been notified: No 01/22/24 09:40 Consult to Cardiology Routine Reason for consultation: tachy Consult to Pulmonology Routine Consulting Provider: Glenroy Acevedo Reason for consultation: resp distress Has provider been notified: No DS: Diagnosis Discharge Diagnosis (1) Severe sepsis: (2) Pneumonia due to Haemophilus influenzae: (3) Acute hypoxic respiratory failure: (4) Atrial flutter, paroxysmal: (5) Acute exacerbation of COPD with asthma: (6) Rhinovirus: (7) AFUA (obstructive sleep apnea): (8) FREDERIC (acute kidney injury): (9) Type 2 diabetes mellitus with hyperglycemia: (10) Hypertension: (11) CKD stage 3a, GFR 45-59 ml/min: (12) Moderate protein-calorie malnutrition: DS: Summary Hospital Course Hospital Course: Reason for admission: See ER note and H&P for details. 88 y/o female to ER with weakness, fatigue, and SOB. Chest x-ray showed pneumonia. Respiratory panel positive for rhinovirus. Identified severe sepsis without shock based on with fever, tachypnea, elevated lactate. Presented with acute hypoxic respiratory failure with tachypnea and SpO2 85% on room air. Placed on oxygen and admitted. Hospital course: Started levaqun and zosyn for pneumonia. Gave IV fluid bolus in ER and continued fluids for sepsis. Started solu-medrol and Duoneb for COPD. Resumed home medication. Worsening hypoxia and placed on high flow oxygen. Developed rapid atrial flutter and gave cardizem. Added digoxin and consulted cardiology. Echo normal. Pulmonology consulted. Slowly improved. Noted desaturation during sleep and has home PAP but doesn't use. Typically on 3 LPM during sleep. Sputum showed pneumonia due to H. influenza which should be treated by levaquin and zosyn. Able to wean to NC during day but would desaturate during sleep and placed back on vapotherm. SOB slowly improved. Severe weakness and started PT/OT. Used hospital BiPAP overnight and tolerated. Family brought in home CPAP machine. Afebrile and normal WBC. PT recommended SNF due to weakness. Remained stable on NC. Discharged to SNF in stable condition. Will take augmentin and levaquin x 5 days. Take prednisone tapered over 12 days. Continue digoxin and cardizem. Resume home medication as directed. Will need CPAP titration study at SNF. Time Spent with Patient Time attestation: Total time spent providing and/or coordinating discharge services: Time spent: greater than 30 minutes Exam Constitutional Vital Signs, click to edit/add: Last Vital Signs Temp 98.7 F 01/28/24 09:00 Pulse 66 01/28/24 10:00 Resp 18 01/28/24 09:00 BP 138/70 01/28/24 09:00 Pulse Ox 90 L 01/28/24 09:00 O2 Del Method Room Air 01/28/24 09:00 O2 Flow Rate 4 01/28/24 04:30 FiO2 40 01/27/24 04:25 Documenting provider has reviewed patient's vital signs: yes Common normals: no apparent distress, oriented x3 and alert HENMT Common normals: normocephalic Eye Common normals: PERRL and EOMs intact bilaterally Respiratory Common normals: normal respiratory effort and clear to auscultation bilaterally Cardio Common normals: regular rate, regular rhythm, no gallops, no murmurs and no rub GI Common normals: Normal to inspection, nondistended, normoactive bowel sounds present and non-tender Extremity Common normals: no pedal edema DS: Data Data Completed and Pending Labs on day of discharge: Labs from last 24 hours 01/28/24 01/28/24 01/28/24 11:04 07:20 04:31 WBC 13.0 H RBC 4.33 Hgb 11.7 L Hct 37.5 MCV 86.6 MCH 27.0 MCHC 31.2 RDW 14.3 Plt Count 210 MPV 9.7 Neut % (Auto) 82.8 H Lymph % (Auto) 5.5 L [place] % (Auto) 4.4 Eos % (Auto) 0.0 L Baso % (Auto) 0.3 Neut # (Auto) 10.8 H Lymph # (Auto) 0.7 L [place] # (Auto) 0.6 Eos # (Auto) 0.0 Baso # (Auto) 0.0 Abs Immat Gran (auto) 0.91 H Imm/Tot Granulo (auto) 7.0 H Sodium 142 Potassium 3.2 L Chloride 105 Carbon Dioxide 27.5 Anion Gap 12.7 BUN 46.0 H Creatinine 1.07 H Est GFR ( Amer) 59 L Est GFR (Non-Af Amer) 49 L BUN/Creatinine Ratio 43.0 Glucose 295 H Calcium 9.2 Total Bilirubin 0.4 AST 21 ALT 38 Alkaline Phosphatase 62 Total Protein 5.5 L Albumin 2.4 L Globulin 3.1 Albumin/Globulin Ratio 0.8 POC Glucose 393 H 321 H 01/27/24 01/27/24 01/27/24 20:40 16:20 11:18 WBC RBC Hgb Hct MCV MCH MCHC RDW Plt Count MPV Neut % (Auto) Lymph % (Auto) [place] % (Auto) Eos % (Auto) Baso % (Auto) Neut # (Auto) Lymph # (Auto) [place] # (Auto) Eos # (Auto) Baso # (Auto) Abs Immat Gran (auto) Imm/Tot Granulo (auto) Sodium Potassium Chloride Carbon Dioxide Anion Gap BUN Creatinine Est GFR ( Amer) Est GFR (Non-Af Amer) BUN/Creatinine Ratio Glucose Calcium Total Bilirubin AST ALT Alkaline Phosphatase Total Protein Albumin Globulin Albumin/Globulin Ratio POC Glucose 297 H 337 H 317 H Discharge Plan Discharge Disposition: Xfer SNF Condition: Fair Discharge Medications: New digoxin 125 mcg (0.125 mg) Tablet 125 mcg PO QD Qty: 1 0RF diltiazem HCl 60 mg Tablet 60 mg PO QID Qty: 1 0RF fluconazole 100 mg Tablet 100 mg PO QD 5 Days Qty: 5 0RF hydrocortisone 2.5 % Cream 1 applic topical BID Qty: 1 0RF prednisone 10 mg tablets,dose pack 10 mg PO DAILY Qty: 39 0RF Rx Instructions: 6 PO daily x 3 days, then 4 PO daily x 3 days, then 2 PO daily x 3 days, then 1 PO daily x 3 days levofloxacin 750 mg tablet 750 mg PO DAILY 5 Days Qty: 5 0RF amoxicillin-pot clavulanate 875-125 mg tablet 1 tab PO Q12H 5 Days Qty: 10 0RF Continued fluticasone propionate 50 mcg/actuation spray,suspension 2 spray INTRANASAL QAM levothyroxine 112 mcg tablet 100 mcg PO QAM Ozempic 0.25 mg or 0.5 mg (2 mg/3 mL) pen injector 0.5 mg SUBCUT QWEEK insulin glargine-yfgn [Semglee(insulin glarg-yfgn)Pen] 100 unit/mL (3 mL) insulin pen 20 unit SUBCUT BID Kerendia 10 mg tablet 10 mg PO DAILY promethazine 25 mg tablet 25 mg PO Q6H PRN (Reason: nausea and vomiting) gabapentin 300 mg capsule 300 mg PO TID celecoxib 200 mg capsule 200 mg PO BID albuterol sulfate 2.5 mg /3 mL (0.083 %) solution for nebulization 2.5 mg continuous nebulization Q4H PRN (Reason: shortness of breath or wheezing) rosuvastatin 20 mg tablet 20 mg PO QAM dapagliflozin propanediol [Farxiga] 10 mg tablet 10 mg PO QAM lidocaine 5 % adhesive patch,medicated 1 patch transdermal Q24H metoprolol succinate 50 mg tablet extended release 24 hr 50 mg PO QAM Trelegy Ellipta 100-62.5-25 mcg blister with device 1 inh INHALATION Q24H bupropion HCl 100 mg tablet 100 mg PO BID esomeprazole magnesium 40 mg capsule,delayed release(DR/EC) 40 mg PO DAILY Myrbetriq 50 mg tablet extended release 24 hr 50 mg PO DAILY albuterol sulfate 90 mcg/actuation HFA aerosol inhaler 2 puff INHALATION Q4H PRN (Reason: shortness of breath or wheezing) metformin 500 mg tablet extended release 24 hr 500 mg PO BID naloxone 4 mg/actuation spray,non-aerosol 1 spray INTRANASAL Q3M PRN (Reason: opioid overdose) sennosides [senna] 8.6 mg tablet 8.6 mg PO DAILY tramadol 50 mg tablet 100 mg PO Q8H PRN (Reason: pain) 5 Days Qty: 15 0RF fentanyl 12 mcg/hr patch 72 hour 1 patch transdermal Q72H 15 Days Qty: 5 0RF Print Language: Spanish Forms: Portal Instructions
--- NOTE | 2024-01-28 11:32 | SWNOTE1 ---
ITA set up trips for 1:15-1:45. ITA sent over dc med rec to Jessica's email and faxed. ITA sent Jessica an email at [facility] and left Alaina at [facility] a time as well on her voicemail. ITA let pt and pt's son know time as well. Pt is going to [facility] skilled. ITA completed [facility]ENS online.
== END 2024-01-28 13:21 | DRG 871 ==
LOC: ER 20:47 → ICU 21:30 → MS 01-25 18:42
PROVIDERS: Emergency Medicine; Registered Nurse; Admitting Provider Family Medicine; Emergency Provider Emergency Medicine; PCP Family Medicine; Visit Provider Family Medicine
DX: A41.9 Sepsis, unspecified organism (principal); J14 Pneumonia due to Hemophilus influenzae; J96.01 Acute respiratory failure with hypoxia; J44.1 Chronic obstructive pulmonary disease with (acute) exacerbation; J44.0 Chronic obstructive pulmonary disease with (acute) lower respiratory infection; I48.92 Unspecified atrial flutter; N17.9 Acute kidney failure, unspecified; E44.0 Moderate protein-calorie malnutrition; E87.20 Acidosis, unspecified; R65.20 Severe sepsis without septic shock; Z66 Do not resuscitate; B34.8 Other viral infections of unspecified site; I12.9 Hypertensive chronic kidney disease with stage 1 through stage 4 chronic kidney disease, or unspecified chronic kidney disease; E11.22 Type 2 diabetes mellitus with diabetic chronic kidney disease; E11.65 Type 2 diabetes mellitus with hyperglycemia; N18.31 Chronic kidney disease, stage 3a; D63.1 Anemia in chronic kidney disease; G47.33 Obstructive sleep apnea (adult) (pediatric); J98.6 Disorders of diaphragm; M54.50 Low back pain, unspecified; G89.29 Other chronic pain; R00.0 Tachycardia, unspecified; R29.6 Repeated falls; R53.1 Weakness; Z68.25 Body mass index [BMI] 25.0-25.9, adult; Z79.890 Hormone replacement therapy; Z79.85 Long-term (current) use of injectable non-insulin antidiabetic drugs; Z79.4 Long term (current) use of insulin; Z79.84 Long term (current) use of oral hypoglycemic drugs; Z79.891 Long term (current) use of opiate analgesic; Z79.51 Long term (current) use of inhaled steroids; Z79.899 Other long term (current) drug therapy; Z85.3 Personal history of malignant neoplasm of breast
CPT/HCPCS: 0202U; 31720; 36410; 36415; 36592; 51702; 51798; 71045; 80053; 80162; 81003; 82800; 82948; 83605; 83735; 83880; 84145; 84436; 84443; 84484; 85007; 85025; 85027; 85610; 85730; 87040; 87070; 87150; 93005; 93306; 94640; 94660; 94667; 94668; 94761; 94799; 96365; 96366; 96368; 96372; 96375; 96376; 97110; 97162; 97165; 97530; 97535; 99285; C1887; J2919

== ENCOUNTER 2024-02-01 04:50 | Outpatient (REF) | payer MEDICARE, SELFPAY ==
[2024-02-01 09:44] LABS: Anion Gap 10.2; BUN Creatinine Ratio 26.5; Calcium 8.8 mg/dL (8.5-10.1); Carbon Dioxide 33.4 mmol/L (21.0-32.0); Chloride 103 mmol/L (98-107); Estimated GFR (African America >60 (>=60); Estimated GFR (Non-African Ame 54 (>=60); Glucose 84 mg/dL (74-106); Potassium 3.6 mmol/L (3.5-5.1); Sodium 143 mmol/L (136-145)
== END 2024-02-01 04:51 | disposition home or self-care (01) ==
LOC: LAB 04:50
PROVIDERS: PCP Family Medicine; Visit Provider Nurse Practitioner Family
DX: A41.9 Sepsis, unspecified organism (principal); E11.42 Type 2 diabetes mellitus with diabetic polyneuropathy
CPT/HCPCS: 36415; 80048